=== PATIENT | female | born 1965 | race Caucasian/White ===

== ENCOUNTER → 2016-09-12 | Outpatient (REF) | payer OTHER ==
[~2016-09-12] MED LIST: /ATOR40TA OR; ASMA1AER3 IN; ASPI32ECTA PO; ASPI81TA45 OR; BAYE325T12 PO; FLUT22IN INH; IMDUR; LOPR50TA OR; METO25TA2 OR; PANT40TA2 PO; SALMDISK INH; SING10TA32 PO; ZYRT10TA2 PO
[2016-09-12 15:58] LABS: ALBUMIN 3.8 GM/DL (3.2-5.2); ALBUMIN/GLOBULIN RATIO 1.06 (1.00-1.93); ALKALINE PHOSPHATASE 112 U/L (45-117); ALT/SGPT 31 U/L (12-78); ANION GAP 8 MEQ/L (8-16); AST/SGOT 15 U/L (15-37); BILIRUBIN,TOTAL 0.3 MG/DL (0.2-1.0); BLOOD UREA NITROGEN 12 MG/DL (7-18); CALCIUM LEVEL 9.4 MG/DL (8.5-10.1); CARBON DIOXIDE LEVEL 30 MEQ/L (21-32); CHLORIDE LEVEL 106 MEQ/L (98-107); CHOLESTEROL LEVEL 158 MG/DL (<200); CREATININE FOR GFR 0.82 MG/DL (0.55-1.02); GLOMERULAR FILTRATION RATE > 60.0 (>51); GLUCOSE, FASTING 117 MG/DL (70-105); POTASSIUM SERUM 4.2 MEQ/L (3.5-5.1); SODIUM LEVEL 144 MEQ/L (136-145); TOTAL PROTEIN 7.4 GM/DL (6.4-8.2); TRIGLYCERIDES LEVEL 176 MG/DL (<150)
== END ==
LOC: M SFHCPLAZ 13:38
PROVIDERS: ATTEND Nurse Practitioner Family
DX: E78.5 Hyperlipidemia, unspecified (principal); E55.9 Vitamin D deficiency, unspecified

== ENCOUNTER → 2016-11-03 | Outpatient (CLI) | payer OTHER ==
--- NOTE | 2016-11-05 08:40 | REP ---
MR CERVICAL SPINE WITHOUT CONTRAST: HISTORY: Neck pain. Facet hypertrophy is present on the left at the C3-4 level. This produces minimal narrowing of the left C3 neural foramen. The right C3 neural foramen is patent. A disc bulge is present at the C5-6 level. There is mild effacement of the thecal sac without spinal cord compression. Uncinate process hypertrophy is present on the left. This produces mild narrowing of the left C5 neural foramen. The right C5 neural foramen is patent. A disc bulge is present at the C6-7 level. There is minimal effacement of the thecal sac without spinal cord compression. The C6 neural foramina are patent. There is no other disc bulge or herniation. The remaining neural foramina are patent. The spinal cord is normal in signal intensity. Normal signal intensity is present in the cervical vertebral bodies. IMPRESSION: There is cervical spondylosis at the C3-4, C5-6, and C6-7 levels without spinal cord compression. Signed by Drake Bianchi MD 11/05/2016 09:00 A
--- NOTE | 2016-11-05 09:13 | REP ---
MR LUMBAR SPINE WITHOUT CONTRAST: HISTORY: Back pain. There is no disc bulge or herniation at the L1-2 through L5-S1 levels. The nerves exit the neural foramina without compression. The conus medullaris is normal in appearance terminating at the level of the L1-2 intervertebral disc. Normal signal intensity is present in the lumbar intervertebral discs and vertebral bodies. IMPRESSION: There is no disc bulge or herniation. Signed by Drake Bianchi MD 11/05/2016 09:28 A
== END ==
LOC: M RAD 07:28
PROVIDERS: ATTEND Physician Assistant
DX: M47.892 Other spondylosis, cervical region (principal); M50.30 Other cervical disc degeneration, unspecified cervical region; M51.36 Other intervertebral disc degeneration, lumbar region

== ENCOUNTER → 2016-11-16 | Outpatient (RCR) | payer OTHER | LOC: M PT 10-22 12:16 | PROVIDERS: ATTEND Physician Assistant | DX: Z51.89 Encounter for other specified aftercare (principal); M51.36 Other intervertebral disc degeneration, lumbar region; M50.30 Other cervical disc degeneration, unspecified cervical region | CPT/HCPCS: 97010; 97035; 97110; 97140; 97162; G0283 ==

== ENCOUNTER → 2017-01-23 | Outpatient (REF) | payer OTHER | LOC: M SFHCPLAZ 16:31 | PROVIDERS: ATTEND Nurse Practitioner Family | DX: E78.5 Hyperlipidemia, unspecified (principal); E55.9 Vitamin D deficiency, unspecified ==

== ENCOUNTER → 2017-02-27 | Outpatient (REF) | payer OTHER ==
[~2017-02-27] MED LIST changes: +ASPI325T24 PO; -ASPI32ECTA PO
[2017-02-27 19:34] LABS: ALBUMIN 3.6 GM/DL (3.2-5.2); ALBUMIN/GLOBULIN RATIO 1.06 (1.00-1.93); ALKALINE PHOSPHATASE 104 U/L (45-117); ALT/SGPT 29 U/L (12-78); ANION GAP 6 MEQ/L (8-16); AST/SGOT 16 U/L (15-37); BILIRUBIN,TOTAL 0.5 MG/DL (0.2-1.0); BLOOD UREA NITROGEN 5 MG/DL (7-18); CALCIUM LEVEL 9.3 MG/DL (8.5-10.1); CARBON DIOXIDE LEVEL 30 MEQ/L (21-32); CHLORIDE LEVEL 106 MEQ/L (98-107); GLOMERULAR FILTRATION RATE > 60.0 (>51); GLUCOSE, FASTING 87 MG/DL (70-105); POTASSIUM SERUM 3.6 MEQ/L (3.5-5.1); SODIUM LEVEL 142 MEQ/L (136-145)
== END ==
LOC: M SFHCPLAZ 14:32
PROVIDERS: ATTEND Nurse Practitioner Family
DX: E78.5 Hyperlipidemia, unspecified (principal)

== ENCOUNTER → 2017-04-24 | Outpatient (CLI) | payer OTHER ==
--- NOTE | 2017-04-24 12:29 | REP ---
Clinical: Right hip pain. Technique: Neutral and frog lateral views. Findings: No acute fracture dislocation. Joint space is essentially normal for age. No significant osteophyte formation, joint space narrowing, or periarticular calcifications are identified. Impression: Relatively age-appropriate right hip radiographs. Signed by Genaro Metzger MD 04/24/2017 12:21 P
== END ==
LOC: M RAD 11:48
PROVIDERS: ATTEND Nurse Practitioner Family
DX: M25.551 Pain in right hip (principal)

== ENCOUNTER → 2017-07-02 | Outpatient (CLI) | payer OTHER ==
--- NOTE | 2017-07-02 14:08 | REP ---
RIGHT LOWER EXTREMITY DUPLEX DOPPLER ARTERIAL ULTRASOUND: Real-time ultrasound evaluation and duplex Doppler interrogation of right lower extremity arterial system performed. EZV is 0.54. There is mild scattered partially calcified plaquing and narrowing seen from distal abdominal aorta throughout the right lower extremity arterial system. There are somewhat diminished peak systolic velocities from right common femoral artery extending down through superficial femoral artery, popliteal artery and into the calf arteries of monophasic wave forms, suggesting possible more proximal iliac artery stenosis. RIGHT: PEAK SYSTOLIC VELOCITY PHASICITY Common femoral artery 24.5 cm/s Monophasic Profunda 48.7 Monophasic Superficial femoral artery 40.6 Monophasic Popliteal 21.1 Monophasic Anterior tibial artery 12.7 Monophasic Tibial peroneal trunk 19.7 Monophasic Posterior tibial artery 12.7 Monophasic Signed by Tom Pacheco MD 07/03/2017 11:28 A
== END ==
LOC: M RAD 11:48
PROVIDERS: ATTEND Surgery Vascular Surgery
DX: I70.211 Atherosclerosis of native arteries of extremities with intermittent claudication, right leg (principal)

== ENCOUNTER → 2017-07-17 | Outpatient (CLI) | payer OTHER, MEDICAID ==
[2017-07-17 12:05] LABS: MEAN CORPUSCULAR HEMOGLOBIN 32.6 pg (27.0-33.0); MEAN CORPUSCULAR HGB CONC 33.1 g/dl (32.0-36.5); MEAN CORPUSCULAR VOLUME 98.6 fl (80.0-96.0); PLATELET COUNT, AUTOMATED 196 10^3/uL (150-450); RED CELL DISTRIBUTION WIDTH 13.3 % (11.5-14.5); WHITE BLOOD COUNT 3.7 10^3/uL (4.0-10.0)
[2017-07-17 12:56] LABS: ANION GAP 7 MEQ/L (8-16); BLOOD UREA NITROGEN 9 MG/DL (7-18); CALCIUM LEVEL 9.2 MG/DL (8.5-10.1); CARBON DIOXIDE LEVEL 30 MEQ/L (21-32); CHLORIDE LEVEL 105 MEQ/L (98-107); CREATININE FOR GFR 0.81 MG/DL (0.55-1.02); GLOMERULAR FILTRATION RATE > 60.0 (>51); GLUCOSE, FASTING 76 MG/DL (70-105); POTASSIUM SERUM 4.4 MEQ/L (3.5-5.1); SODIUM LEVEL 142 MEQ/L (136-145)
== END ==
LOC: M LAB 11:19
PROVIDERS: ATTEND Surgery Vascular Surgery
DX: I70.211 Atherosclerosis of native arteries of extremities with intermittent claudication, right leg (principal)

== ENCOUNTER → 2017-08-01 | Outpatient (CLI) | payer OTHER ==
[~2017-08-01] MED LIST changes: +HEPARIN 1,000 UNITS/ML 10ML VIAL (FOR RADIOLOGY& DIALYSIS ONLY) As Ordered ONE; +ISOVUE-300 61% 50ML VIAL (Q9967) As Ordered ONE; +MIDAZOLAM INJ 2 MG/2 ML VIAL (J2250) As Ordered ONE; +PROTAMINE SULF INJ 50 MG/5 ML VIAL (J2720) As Ordered ONE; +fentaNYL 100 MCG/2 ML INJECTION (J3010) As Ordered ONE
--- NOTE | 2017-08-01 07:55 | REP ---
Bilateral carotid artery duplex ultrasound: Peak flow velocity analysis: RIGHT LEFT ICA Peak flow velocity cm/sec 94 120 ICA Diastolic flow velocity cm/sec 37 37 ICA/CCA Ratio 1.0 1.5 ECA Peak flow velocity cm/sec 117 89 CCA Peak flow velocity cm/sec 96 82 There is shallow to moderate atheromatous plaque in the distal common carotid artery extending into the bulbs and proximal internal carotid arteries and external carotid arteries bilaterally. Peak flow velocities are normal bilaterally. The findings indicate less than 50% stenosis bilaterally. There is no significant stenosis on the right on the left. There is antegrade flow in the vertebral arteries bilaterally. Signed by Tom Melgar MD 08/01/2017 07:47 A
--- NOTE | 2017-08-08 05:58 | REPIR ---
DATE OF PROCEDURE: 08/01/2017 PREPROCEDURE DIAGNOSES: Right lower extremity claudication with an ZEV of 0.54, left lower extremity claudication. POSTPROCEDURE DIAGNOSES: Right lower extremity claudication with an ZEV of 0.54, left lower extremity claudication plus aortoiliac atherosclerotic arterial occlusive disease. PROCEDURE: Aortogram, iliofemoral angiogram, bilateral lower extremity angiography, Mynx closure of the left common femoral arteriotomy. SURGEON: Dr. Sherman Mack. SUPERVISOR SHAVING AND SPLITTING: Jim Curran and Mari Kamara. ANESTHESIA: Local with 10 mL of 2% lidocaine. ESTIMATED BLOOD LOSS: SEDATION TIME: From 8:48 a.m. to 9:11 a.m. for a total of 23 minutes with the sedation administered and cardiopulmonary monitoring performed by the nurse in the room under my direct supervision. I was present for and directed the entire case. INDICATION: Patient is a 52-year-old female with bilateral lower extremity claudication, right greater than left, and an ZEV on the right of 0.54. Patient will undergo an angiogram with possible angioplasty and/or stent. Risks, benefits and alternative treatment options were discussed with the patient. PROCEDURE: The patient was taken to the angiography suite and placed supine on the angiography room table and then prepped and draped in a standard surgical fashion. The left common femoral artery was cannulated with a micropuncture needle after anesthetizing the overlying skin with 2% lidocaine. The micropuncture wire was advanced through the micropuncture needle which was upsized to a micropuncture sheath. A Bentson wire was advanced through the micropuncture sheath which was upsized to a #5-Tajik sheath. An Omniflush catheter was placed in the aorta and an aortogram was performed. Catheter was then pulled down to the level of the bifurcation of the iliac arteries and an iliofemoral angiogram was performed. Catheter remained at the bifurcation of the iliac arteries and bilateral lower extremity angiogram was performed. Catheters and wires were removed and a Mynx closure device was used to close the arteriotomy in the left common femoral artery with an additional 10 minutes of adjunctive pressure applied for hemostasis. Dressings were then applied. Patient tolerated the procedure well. All instrument, sponge and needle counts were correct at the end of the case. There were no complications. Dr. Mack was present for and directed the entire case. Patient was transferred to the holding area and subsequently discharged in stable condition. RADIOLOGIC SUPERVISION INTERPRETATION: The aortogram showed severe aortoiliac occlusive disease with reconstitution of the common femoral arteries bilaterally. A Mynx closure device was used to close the arteriotomy in the left common femoral artery.
== END | disposition home or self-care (01) ==
LOC: M IRPRO 06:40
PROVIDERS: ATTEND Surgery Vascular Surgery
DX: I70.0 Atherosclerosis of aorta (principal); I70.218 Atherosclerosis of native arteries of extremities with intermittent claudication, other extremity
CPT/HCPCS: 36200; 75630; 93880; 99152; 99153; C1760; C1769; C1887; C1894; G0269; J2250; J3010; Q9967

== ENCOUNTER → 2017-10-23 | Outpatient (CLI) | payer OTHER | LOC: M WHC 12:02 | DX: Z12.31 Encounter for screening mammogram for malignant neoplasm of breast (principal) | CPT/HCPCS: 77067 ==

== ENCOUNTER 2018-01-04 14:57 | Emergency (ER) | payer OTHER | END 2018-01-04 16:12 | disposition home or self-care (01) | LOC: M ED 14:57 | DX: S60.222A Contusion of left hand, initial encounter (principal); S60.512A Abrasion of left hand, initial encounter; W19.XXXA Unspecified fall, initial encounter; Y92.410 Unspecified street and highway as the place of occurrence of the external cause; Y93.9 Activity, unspecified; Y99.9 Unspecified external cause status; I51.9 Heart disease, unspecified; I10 Essential (primary) hypertension; J45.909 Unspecified asthma, uncomplicated; J44.9 Chronic obstructive pulmonary disease, unspecified; Z79.82 Long term (current) use of aspirin; Z79.899 Other long term (current) drug therapy; Z88.5 Allergy status to narcotic agent | CPT/HCPCS: 73130 ==

== ENCOUNTER → 2018-02-12 | Outpatient (REF) | LOC: M SMT 12:20 | DX: Z02.71 Encounter for disability determination (principal) ==

== ENCOUNTER → 2018-02-26 | Outpatient (REF) | payer OTHER | LOC: M SFHCPLAZ 14:13 | DX: I25.10 Atherosclerotic heart disease of native coronary artery without angina pectoris (principal); E55.9 Vitamin D deficiency, unspecified ==

== ENCOUNTER 2018-05-21 15:08 | Emergency (ER) | payer OTHER, MEDICAID ==
[2018-05-21] MEDS: NS 1,000 ML IV (16:57)
[2018-05-21] MEDS: METOCLOPRAMIDE INJ 10MG/2ML VIAL (J2765) IV (16:57)
[2018-05-21] MEDS: KETOROLAC 30 MG/ML VIAL (J1885) IV (16:58)
[2018-05-21] MEDS: diphenhydrAMINE INJ 50MG/ML VIAL (J1200) IV (16:58)
[2018-05-21] MEDS: CYCLOBENZAPRINE 10 MG TAB PO (17:40)
== END 2018-05-21 17:45 | disposition home or self-care (01) ==
LOC: M ED 15:08
DX: G44.209 Tension-type headache, unspecified, not intractable (principal); M62.838 Other muscle spasm; K21.9 Gastro-esophageal reflux disease without esophagitis; Z95.1 Presence of aortocoronary bypass graft; Z95.5 Presence of coronary angioplasty implant and graft; Z79.899 Other long term (current) drug therapy; Z79.82 Long term (current) use of aspirin; Z88.5 Allergy status to narcotic agent; F17.210 Nicotine dependence, cigarettes, uncomplicated
CPT/HCPCS: J1200

== ENCOUNTER → 2018-06-02 | Outpatient (REF) | payer OTHER ==
[2018-06-02 17:37] LABS: ALBUMIN 3.8 GM/DL (3.2-5.2); ALBUMIN/GLOBULIN RATIO 1.09 (1.00-1.93); ALKALINE PHOSPHATASE 111 U/L (45-117); ALT/SGPT 21 U/L (12-78); ANION GAP 5 MEQ/L (8-16); AST/SGOT 13 U/L (7-37); BILIRUBIN,TOTAL 0.3 MG/DL (0.2-1.0); BLOOD UREA NITROGEN 7 MG/DL (7-18); CARBON DIOXIDE LEVEL 32 MEQ/L (21-32); CHLORIDE LEVEL 105 MEQ/L (98-107); CHOLESTEROL LEVEL 143 MG/DL (<200); CHOLESTEROL RISK RATIO 3.666 (<5); CREATININE FOR GFR 0.92 MG/DL (0.55-1.30); GLOMERULAR FILTRATION RATE > 60.0 (>51); GLUCOSE, FASTING 87 MG/DL (70-100); HDL CHOLESTEROL 39 MG/DL (>40); LDL CHOLESTEROL 83 MG/DL (<100); NON-HDL-C 104 MG/DL; POTASSIUM SERUM 4.3 MEQ/L (3.5-5.1); SODIUM LEVEL 142 MEQ/L (136-145); TOTAL PROTEIN 7.3 GM/DL (6.4-8.2); TRIGLYCERIDES LEVEL 107 MG/DL (<150)
== END ==
LOC: M SFHCPLAZ 15:07
DX: E78.5 Hyperlipidemia, unspecified (principal); I25.10 Atherosclerotic heart disease of native coronary artery without angina pectoris; E55.9 Vitamin D deficiency, unspecified

== ENCOUNTER 2018-06-19 09:19 | Inpatient (IN) | payer OTHER ==
[~2018-06-19] VITALS: Ht 162.6 cm; Wt 64.5 kg
[2018-06-19] VITALS (8 sets, daily range): BP systolic 69–134; BP diastolic 50–70
[~2018-06-19 09:19] MED LIST changes: +ASMA16.7 INH; +ASPI1TAB PO; -ASPI325T24 PO; +ASPI325T25 PO; +CETI10TA PO; +COMBAER6 INH; +CYCL10TA PO; +ESCI20TA; +FLON1SPR; -HEPARIN 1,000 UNITS/ML 10ML VIAL (FOR RADIOLOGY& DIALYSIS ONLY) As Ordered ONE; +ISOS30TA4 PO; -ISOVUE-300 61% 50ML VIAL (Q9967) As Ordered ONE; +LIPI20TA PO; -MIDAZOLAM INJ 2 MG/2 ML VIAL (J2250) As Ordered ONE; +NICO21DI6 TD; -PANT40TA2 PO; +PANT40TA3 PO; -PROTAMINE SULF INJ 50 MG/5 ML VIAL (J2720) As Ordered ONE; +STRI1AER2 INH; +TRAZ1TAB14 PO; +WELL200T PO; +ZYRT10CA5 PO; -ZYRT10TA2 PO; -fentaNYL 100 MCG/2 ML INJECTION (J3010) As Ordered ONE
[2018-06-19 10:12] LABS: HEMATOCRIT 37.5 % (36.0-47.0); HEMOGLOBIN 12.6 g/dl (12.0-15.5); MEAN CORPUSCULAR HEMOGLOBIN 33.2 pg (27.0-33.0); MEAN CORPUSCULAR HGB CONC 33.6 g/dl (32.0-36.5); MEAN CORPUSCULAR VOLUME 98.7 fl (80.0-96.0); PLATELET COUNT, AUTOMATED 154 10^3/uL (150-450); WHITE BLOOD COUNT 3.7 10^3/uL (4.0-10.0)
[2018-06-19] MEDS ORDERED: HEPARIN SOD (PORCINE) 5000 UNITS/ML VIAL As Ordered ONE ×5 (12:53→18:22)
[2018-06-19] MEDS ORDERED: LIDOCAINE 1% SDV INJ 30 ML VIAL As Ordered ONE (12:53)
[2018-06-19] MEDS ORDERED: THROMBIN SOLN 20,000 UNITS KIT As Ordered ONE (12:53)
[2018-06-19] MEDS ORDERED: BUPIVACAINE HCL 0.5% 30 ML VIAL As Ordered ONE (12:54)
--- NOTE | 2018-06-19 14:10 | HPEPDOC ---
General Date of Admission Jun 19, 2018 at 09:19 Primary Care Physician: JOHN WASHINGTON Attending Physician: Sherman Mack MD Chief Complaint The patient is a 53-year-old female admitted with a reason for visit of Aorto- Iliac Occlusive Disease, total occlusion of the external iliac and common femor al artery on the right, total occlusion of the superficial femoral artery and profunda femoris artery proximally on the right and right lower extremity claudication. Source: Patient, Old records Exam Limitations: No limitations History of Present Illness Patient is a 53-year-old female who underwent angiography due to claudication in her lower extremities which showed complete occlusion of her right external iliac artery and common femoral artery as well as the proximal superficial femoral and profunda femoris arteries. Patient also has severe aortoiliac atherosclerotic arterial occlusive disease with severe stenosis of the left common iliac and right common iliac arteries. Patient was unable to undergo endovascular repair of her severe atherosclerotic arterial occlusive disease and the recommendation was to undergo a right femoral endarterectomy with patch angioplasty with possible concomitant recanalization of the right external iliac artery with bilateral common and external iliac artery angioplasty and stenting possibly. Patient may also require a left right femoral femoral bypass grafting as well as possible femoral to superficial femoral and popliteal artery bypass grafting. Home Medications Scheduled (Striverdi Respimat) 2.5 Mcg/Act Aer, 2.5 MCG INH PRN, (Reported) Albuterol/Ipratropium (Combivent Respimat 20-100 Mcg/Act) 1 Aer Aer, 1 PUFF INH BID, (Reported) Aspirin (Aspirin 81) 81 Mg Tab, 81 MG PO DAILY, (Reported) Atorvastatin Calcium (Lipitor) 20 Mg Tab, 80 MG PO DAILY, (Reported) Bupropion HCl (Wellbutrin Sr) 200 Mg Tab, PO BID, (Reported) Cetirizine HCl (Cetirizine HCl) 10 Mg Tab, PO DAILY, (Reported) Isosorbide Mononitrate (Isosorbide Mononitrate ER) 30 Mg Tab, 30 MG PO DAILY, (Reported) Mometasone Furoate (Asmanex Hfa) 100 Mcg/Act Aer, Unknown Dose INH BID, (Reported) Montelukast Sodium (Singulair) 10 Mg Tab, 10 MG PO QHS, (Reported) Nicotine (Nicoderm Cq) 21 Mg/24 Hr Dis, 21 MG TD DAILY, (Reported) Pantoprazole Sodium (Pantoprazole Sodium) 40 Mg Tab, PO DAILY, (Reported) Trazodone HCl (Trazodone HCl) 150 Mg Tab, PO QHS, (Reported) Scheduled PRN Cyclobenzaprine HCl (Cyclobenzaprine HCl) 10 Mg Tab, 10 MG PO TID PRN for MUSCLE SPASMS Allergies Coded Allergies: Codeine (Verified Adverse Reaction, Mild, vomiting, 06/09/18) Past Medical History Medical History Coronary artery disease status post myocardial infarction and CABG in 2009, with PTCA and stent 3 in 2014. Hyperlipidemia. Depression. COPD Coccyx fracture after traumatic fall in August 2014 Vitamin D deficiency Severe aortoiliac and femoral-popliteal arterial atherosclerotic occlusive disease. Tobacco use Surgical History Coronary artery bypass grafting in 2009 Coronary angiography with stenting 2014 Total hysterectomy 2008 EGD which was normal Colonoscopy which showed diverticulosis and a tubular adenomatous polyp which was removed in October 2015 Social History * Smoker: current smoker, greater than 1 pack/day Alcohol: occationally Drugs: denies Recent Travel/Sick Contacts: Denies: Recent travel, Recent sick contacts Psychosocial History: Depression Review of Systems Constitutional: Reports: Other; Denies: Chills, Fever, Malaise, Night Sweats, Weakness, Fatigue, Weight Loss, Lethargy Eyes: Denies: Pain, Vision change, Conjunctivae inflammation, Eyelid inflammation, Redness ENT: Denies: Head Aches, Ear Pain, Dysphagia, Sinus Congestion, Post Nasal Drip, Sore Throat, Epistaxis Skin: Denies: Rash, Lesions, Jaundice, Bruising, Itching, Dry, Breakdown, Nail Changes Pulmonary: Denies: Dyspnea, Cough, Pleuritic Chest Pain Cardiovascular: Denies: Chest Pain, Palpitations, Orthopnea, Paroxysmal Noc. D yspnea, Edema, Lt Headedness Gastrointestinal: Denies: Nausea, Vomiting, Abdominal Pain, Diarrhea, Constipation, Melena, Hematochezia Genitourinary: Reports: Other Symptoms; Denies: Dysuria, Frequency, Incontinence, Hematuria, Retention Hematologic: Denies: Bruising, Bleeding Excessively, Petecchia, Purpura, Enlarged Lymph Nodes Endocrine: Denies: Polydipsia, Polyphagia, Polyuria, Heat Intolerance, Cold Int olerance Musculoskeletal: Denies: Neck Pain, Back Pain, Shoulder Pain, Arm Pain, Hand Pain, Leg Pain, Foot Pain, Joint Pain, Muscle Pain, Spasms Neurological: Denies: Weakness, Numbness, Incoordination, Change in speech, Confusion, Seizures Psych: Denies: Mood Normal, Anxiety, Depression, Memory Issues, Thoughts of Self Harm, Anger, Thoughts of Harming Other Physical Examination General Exam: Positive: Alert, Cooperative, No Acute Distress Eye Exam: Positive: Conjunctiva & lids normal, EOMI ENT Exam: Positive: Atraumatic, Mucous membr. moist/pink, Pharynx Normal, Tongue Midline, Nares Patent, Ext Auditory Canal Nml, Pinna Normal Neck Exam: Positive: Supple, +2 carotid pulse wo bruit Chest Exam: Positive: Clear to auscultation, Normal air movement Heart Exam: Positive: Rate Normal Telemetry: Positive: No significant arrhythmia, Sinus Abdomen Exam: Positive: Normal bowel sounds, Soft Extremity Exam: Positive: Normal pulses (nonpalpable dorsalis peas and posterior tibial pulses bilaterally which were obtainable with continuous wave Doppler ultrasound with monophasic flow in the right biphasic flow on the left. ); Negative: Clubbing, Cyanosis, Edema, Tenderness, Swelling Skin Exam: Positive: Nl turgor and temperature Neuro Exam: Positive: Normal Speech, Normal Tone, Sensation Intact, Cranial Nerves 3-12 NL, Reflexes 2+ Psych Exam: Positive: Mental status NL, Mood NL, Memory Intact, Oriented x 3 Vital Signs Vital Signs Date Time Temp Pulse Resp B/P (MAP) Pulse Ox O2 Delivery O2 Flow Rate FiO2 06/19/18 09:55 97.8 80 18 108/60 (76) 93 Laboratory Data Labs 24H Laboratory Tests 2 06/19/18 09:47: Nucleated Red Blood Cells % (auto) 0.0 CBC/BMP Laboratory Tests 06/19/18 09:47 Red Blood Count 3.80 L, Mean Corpuscular Volume 98.7 H, Mean Corpuscular Hemoglobin 33.2 H, Mean Corpuscular Hemoglobin Concent 33.6, Red Cell Distribution Width 13.7 Assessment/Plan Assessment Patient is a 53-year-old female with right greater than left lower extremity claudication who underwent angiography which showed severe aortoiliac atherosclerotic occlusive disease with stenosis in her right and left common iliac arteries. Patient also had complete occlusion of her right external iliac artery and right common femoral artery and proximal right superficial femoral and profunda femoris arteries with reconstitution of the superficial femoral and profunda femoris arteries distally via collaterals. Plan Patient will undergo a right femoral endarterectomy with patch angioplasty with attempted recanalization of her right external iliac artery with possible antip lastic and stenting. Patient will also undergo possible left common and external iliac artery angioplasty and stenting. Sherman Mack MD Jun 19, 2018 14:10
[2018-06-19] MEDS ORDERED: PROPOFOL 200 MG/20 ML VIAL As Ordered ONE ×2 (14:13→14:14)
[2018-06-19] MEDS ORDERED: fentaNYL 100 MCG/2 ML INJECTION (J3010) As Ordered ONE (14:27)
[2018-06-19] MEDS ORDERED: ROCURONIUM BROMIDE 50 MG/5 ML VIAL As Ordered ONE (14:27)
[2018-06-19] MEDS ORDERED: fentaNYL 250 MCG/5 ML INJECTION (J3010) As Ordered ONE (14:27)
[2018-06-19] MEDS ORDERED: MIDAZOLAM INJ 2 MG/2 ML VIAL (J2250) As Ordered ONE ×3 (14:27→20:11)
[2018-06-19] MEDS ORDERED: ONDANSETRON 4MG/2ML VIAL (J2405) As Ordered ONE (14:27)
[2018-06-19] MEDS ORDERED: dexameTHASONE 4 MG/ML 1ML VIAL (J1100) As Ordered ONE (14:27)
[2018-06-19] MEDS ORDERED: CONRAY-60 60% 50ML VIAL (Q9961) As Ordered ONE (14:32)
[2018-06-19] MEDS ORDERED: ePHEDrine SULFATE 25 MG/5 ML(5MG/ML) SYRINGE As Ordered ONE (15:10)
[2018-06-19] MEDS ORDERED: PHENYLephrine HCL 500 MCG/5 ML (100MCG/ML) SYRINGE (J2370) As Ordered ONE (15:16)
[2018-06-19] MEDS ORDERED: PHENYLEPHRINE INJ 10MG/ML VIAL (J2370) As Ordered ONE ×2 (15:43→20:22)
[2018-06-19] MEDS ORDERED: VASOPRESSIN INJ 20 UNITS/ML VIAL As Ordered ONE (16:02)
[2018-06-19 16:36] LABS: HEMATOCRIT 21.9 % (36.0-47.0); HEMOGLOBIN 7.1 g/dl (12.0-15.5)
[2018-06-19] MEDS ORDERED: CALCIUM CHLORIDE 10% 1 GM/10 ML SYR As Ordered ONE (17:04)
[2018-06-19] MEDS ORDERED: ESMOLOL INJ 100MG/10ML VIAL As Ordered ONE (17:57)
[2018-06-19] MEDS ORDERED: PROTAMINE SULF INJ 50 MG/5 ML VIAL (J2720) As Ordered ONE (18:50)
[2018-06-19] MEDS ORDERED: MORPHINE 4 MG/ML 1ML VIAL/SYRINGE (J2270) IV PRN (20:00)
[2018-06-19] MEDS ORDERED: CYCLOBENZAPRINE 10 MG TAB PO PRN (20:00)
[2018-06-19] MEDS ORDERED: fentaNYL 100 MCG/2 ML INJECTION (J3010) IV PRN (20:45)
[2018-06-19] MEDS ORDERED: METOCLOPRAMIDE INJ 10MG/2ML VIAL (J2765) IV PRN (20:45)
[2018-06-19] MEDS ORDERED: ONDANSETRON 4MG/2ML VIAL (J2405) IV PRN (20:45)
[2018-06-19] MEDS ORDERED: MIDAZOLAM INJ 2 MG/2 ML VIAL (J2250) IV SCH (20:45)
[2018-06-19] MEDS ORDERED: LR 1,000 ML IV SCH (20:45)
[2018-06-19] MEDS ORDERED: PERCOCET 5MG/325MG TAB PO PRN (20:45)
[2018-06-19 20:50] LABS: BASO % 0.2 % (0.0-1.0); EOS # 0.1 10^3/uL (0.0-0.50); EOS % 0.4 % (0.0-3.0); HEMATOCRIT 34.6 % (36.0-47.0); LYMPH # 1.7 10^3/uL (1.5-4.5); LYMPH % 12.9 % (24.0-44.0); MEAN CORPUSCULAR HEMOGLOBIN 30.5 pg (27.0-33.0); MEAN CORPUSCULAR HGB CONC 33.8 g/dl (32.0-36.5); MEAN CORPUSCULAR VOLUME 90.3 fl (80.0-96.0); MONO # 0.5 10^3/uL (0.0-0.8); MONO % 3.9 % (0.0-5.0); NEUTROPHILS # 11.1 10^3/uL (1.8-7.7); NEUTROPHILS % 81.8 % (36.0-66.0); PLATELET COUNT, AUTOMATED 100 10^3/uL (150-450); RED BLOOD COUNT 3.83 10^6/uL (4.00-5.40); WHITE BLOOD COUNT 13.5 10^3/uL (4.0-10.0)
[2018-06-19 20:56] LABS: HEMOGLOBIN 11.7 g/dl (12.0-15.5)
[2018-06-19] MEDS: buPROPion (WELLBUTRIN SR) 100 MG SR TAB PO SCH (21:00)
[2018-06-19] MEDS: MONTELUKAST 10 MG TAB PO SCH (21:00)
[2018-06-19] MEDS: traZODone 50 MG TAB PO SCH (21:00)
[2018-06-19] MEDS ORDERED: PHENYLEPHRINE INJ 10MG/ML VIAL (J2370) IV SCH (21:15)
[2018-06-19 21:40] LABS: ABG HCO3 20.2 MEQ/L (22.0-26.0); ABG O2 SATURATION 95.9 % (95.0-99.0); ABG PARTIAL PRESSURE CO2 46.7 mmHg (35.0-45.0); ABG PARTIAL PRESSURE O2 83.6 mmHg (75.0-100.0); ABG STANDARD HCO3 18.8 MEQ/L (22.0-26.0); ABG TOTAL CO2 21.6 MEQ/L (22.0-29.0); ABG pH (ARTERIAL) 7.253 UNITS (7.350-7.450)
[2018-06-19] MEDS: ONDANSETRON 4MG/2ML VIAL (J2405) IV PRN (22:28)
[2018-06-19] MEDS ORDERED: NALOXONE INJ 0.4 MG/1 ML VIAL (J2310) IV STA (22:38)
[2018-06-19] MEDS ORDERED: FLUMAZENIL 0.5 MG/5 ML VIAL IV PRN (22:45)
[2018-06-19] MEDS ORDERED: PHENYLEPHRINE HCL INJ 50 MG in D5W 495 ML IV SCH (23:00)
[2018-06-19 23:14] LABS: ABG BASE EXCESS -8.6 (-2.0-2.0); ABG HCO3 18.6 MEQ/L (22.0-26.0); ABG O2 SATURATION 98.3 % (95.0-99.0); ABG PARTIAL PRESSURE CO2 44.4 mmHg (35.0-45.0); ABG PARTIAL PRESSURE O2 127.9 mmHg (75.0-100.0); ABG STANDARD HCO3 17.7 MEQ/L (22.0-26.0); ABG TOTAL CO2 19.9 MEQ/L (22.0-29.0)
[2018-06-19 23:15] LABS: ABG pH (ARTERIAL) 7.239 UNITS (7.350-7.450)
[2018-06-19 23:28] LABS: MB/CK RELATIVE INDEX 5.26 (< OR =4); TROPONIN I 1.41 NG/ML (< 0.10)
[2018-06-19] MEDS ORDERED: SODIUM BICARBONATE 8.4% INJ 50 ML SYRINGE IV STA (23:34)
[2018-06-19] MEDS ORDERED: ACETAMINOPHEN 325 MG/10.15 ML UDC GT PRN (23:45)
[2018-06-20] VITALS (24 sets, daily range): BP systolic 75–171; BP diastolic 50–110
[2018-06-20 01:13] LABS: ABG BASE EXCESS -6.1 (-2.0-2.0); ABG HCO3 19.5 MEQ/L (22.0-26.0); ABG O2 SATURATION 97.8 % (95.0-99.0); ABG PARTIAL PRESSURE CO2 39.1 mmHg (35.0-45.0); ABG PARTIAL PRESSURE O2 100.6 mmHg (75.0-100.0); ABG STANDARD HCO3 19.5 MEQ/L (22.0-26.0); ABG TOTAL CO2 20.7 MEQ/L (22.0-29.0); ABG pH (ARTERIAL) 7.316 UNITS (7.350-7.450)
[2018-06-20] MEDS ORDERED: SODIUM BICARBONATE 8.4% INJ 50 ML SYRINGE IV STA (01:32)
--- NOTE | 2018-06-20 02:26 | REP ---
Clinical: Status post endarterectomy . Comparison: 12/08/2015 . Findings: The mediastinum and cardiac silhouette are stable and within normal limits for portable technique. Evidence for prior sternotomy and CABG. The lung eric are clear without acute consolidation, effusion, or pneumothorax. Skeletal structures are intact. Impression: No acute cardiopulmonary process appreciated. Electronically Signed by Genaro Metzger MD 06/20/2018 02:19 A
[2018-06-20 05:23] LABS: HEMOGLOBIN 13.2 g/dl (12.0-15.5); MEAN CORPUSCULAR HEMOGLOBIN 30.3 pg (27.0-33.0); MEAN CORPUSCULAR HGB CONC 35.7 g/dl (32.0-36.5); MEAN CORPUSCULAR VOLUME 85.1 fl (80.0-96.0); RED BLOOD COUNT 4.35 10^6/uL (4.00-5.40); WHITE BLOOD COUNT 12.5 10^3/uL (4.0-10.0)
[2018-06-20 05:46] LABS: CREATININE FOR GFR 1.03 MG/DL (0.55-1.30); GLOMERULAR FILTRATION RATE 59.4 (>51); POTASSIUM SERUM 4.2 MEQ/L (3.5-5.1)
[2018-06-20 05:49] LABS: PLATELET COUNT, AUTOMATED 85 10^3/uL (150-450)
[2018-06-20 05:58] LABS: ABG BASE EXCESS -2.2 (-2.0-2.0); ABG HCO3 22.6 MEQ/L (22.0-26.0); ABG O2 SATURATION 94.1 % (95.0-99.0); ABG PARTIAL PRESSURE CO2 38.9 mmHg (35.0-45.0); ABG PARTIAL PRESSURE O2 68.1 mmHg (75.0-100.0); ABG STANDARD HCO3 22.6 MEQ/L (22.0-26.0); ABG TOTAL CO2 23.8 MEQ/L (22.0-29.0); ABG pH (ARTERIAL) 7.382 UNITS (7.350-7.450)
[2018-06-20] MEDS: ONDANSETRON 4MG/2ML VIAL (J2405) IV PRN ×3 (06:02→19:48)
[2018-06-20 06:04] LABS: MB/CK RELATIVE INDEX 5.21 (< OR =4); TROPONIN I 0.53 NG/ML (< 0.10)
[2018-06-20] MEDS ORDERED: METOPROLOL 5 MG/5 ML VIAL IV STA ×2 (07:01→11:10)
[2018-06-20] MEDS ORDERED: METOCLOPRAMIDE INJ 10MG/2ML VIAL (J2765) IV PRN (07:15)
[2018-06-20] MEDS: IPRATROPIUM 0.5MG/ALBUTEROL 2.5MG INH SOL UD 3ML (DUONEB)(J7620) INH SCH ×2 (08:39→19:51)
[2018-06-20] MEDS: buPROPion (WELLBUTRIN SR) 100 MG SR TAB PO SCH ×2 (09:00→21:53)
[2018-06-20] MEDS: NICOTINE 21MG/24HR 1 EA TRANSDERMAL TD SCH (09:07)
--- NOTE | 2018-06-20 10:04 | IPNPDOC ---
Subjective Date Seen The patient was seen on 06/20/18. Subjective Chief Complaint/HPI Sleepy, Pain, +N/+V. Phenylephrine stopped this am d/t stabilized BPs as per RN. Objective Physical Examination General Exam: Positive: Cooperative (arousable, seems to understand but did not answer questions), Moderate Distress; Negative: Alert Eye Exam: Positive: PERRLA, EOMI ENT Exam: Positive: Atraumatic, Ext Auditory Canal Nml Neck Exam: Positive: Supple; Negative: JVD Chest Exam: Positive: Clear to auscultation, Normal air movement, Diminished (BS in lung bases b/l); Negative: Rales, Rhonchi, Wheezing Heart Exam: Positive: Tachycardic, Regular Rhythm, Normal S1, Normal S2; Negative: Gallops, Murmurs, Rubs Telemetry: Positive: No significant arrhythmia, Sinus Abdomen Exam: Positive: Normal bowel sounds, Soft, Tenderness (RLQ >LLQ, no rebound.) Extremity Exam: Positive: Normal pulses (PP: Rt DP and PT audible biphasic, Lt DP and PT audible biphasic), Swelling (Rt groin and upper thigh large bruise in surgical site, minimal drainage on dressing, no incisional hematoma); Negative: Clubbing, Cyanosis, Edema, Tenderness Skin Exam: Positive: Nl turgor and temperature Neuro Exam: Positive: Normal Speech, Normal Tone, Sensation Intact, Cranial Nerves 3-12 NL, Reflexes 2+ Psych Exam: Positive: Mental status NL (sleepy), Mood NL Assessment /Plan Assessment 1. POD #1, S/p biiliac stents + Rt fem endarterectomy for severe aortoiliac and Rt femoral atherosclerotic occlusive disease. Rt retroperitoneal hematoma stable. BPs stabilized, has been tachy HR 110-120s, phenylephrine stopped this am. 2. CAD with Hx MT s/p CABG x2 2010 Trop trending down 0.53 vs 1.41, CK-MB trending up 95 vs 29, CK-MB RI 5.21.vs 5.26 UOP adequate 2520 cc 3. COPD on RT 4. Acute blood loss anemia, s/p PRBCs x4, H&H 13.2/37 5. Thrombocytopenia plt 85 vs 100 Plan/VTE VTE Prophylaxis Ordered?: Yes Plan Continue current regimen Phenylephrine on hold this am for stabilized BPs, Continue to monitor BPs and HR, UOP Continue to monitor cardiac enzymes Continue Zofran for N/V RT for COPD Metoprolol 2.5 mg IV x1 Request cardiology consult for postop medical management of her CAD OOB up to chair Encourage ambulation as able VS, I&O, 24H, Vikram Vital Signs/I&O Vital Signs Date Time Temp Pulse Resp B/P (MAP) Pulse Ox O2 Delivery O2 Flow Rate FiO2 06/20/18 08:03 25 06/20/18 07:34 122 137/72 06/20/18 06:30 98 Room Air 06/20/18 04:00 99.0 06/20/18 00:00 3.0 I&O- Last 24 Hours up to 6 AM 06/20/18 05:59 Intake Total 7536 ml Output Total 2355 ml Balance 5181 ml Laboratory Data 24H LABS Laboratory Tests 2 06/19/18 09:47: Nucleated Red Blood Cells % (auto) 0.0 06/19/18 16:27: POC pH (Misc Panel) 7.283L, POC Base Excess (Misc Panel) -2.0, POC Saturated Percent O2 (Misc) 100H, POC pO2 (Misc Panel) 283.0H, POC pCO2 (Misc Panel) 53.0H, POC HCO3 (Misc Panel) 25.1, POC Glucose (Misc Panel) 267H, POC Sodium (Misc Panel) 141, POC Potassium (Misc Panel) 3.8, POC Total CO2 (Misc Panel) 27.0, POC Ionized Calcium (Misc Panel) 4.9, POC Hemoglobin (Misc) 5.8*L, POC Hematocrit (Misc Panel) 17.0L 06/19/18 20:30: Nucleated Red Blood Cells % (auto) 0.0, Immature Granulocyte % (Auto) 0.8, White Blood Count 13.5H, Red Blood Count 3.83L, Hemoglobin 11.7#L, Hematocrit 34.6L, Mean Corpuscular Volume 90.3, Mean Corpuscular Hemoglobin 30.5, Mean Corpuscular Hemoglobin Concent 33.8, Red Cell Distribution Width 15.9H, Platelet Count 100L, Neutrophils (%) (Auto) 81.8H, Lymphocytes (%) (Auto) 12.9L, Monocytes (%) (Auto) 3.9, Eosinophils (%) (Auto) 0.4, Basophils (%) (Auto) 0.2, Neutrophils # (Auto) 11.1H, Lymphocytes # (Auto) 1.7, Monocytes # (Auto) 0.5, Eosinophils # (Auto) 0.1, Basophils # (Auto) 0.0 06/19/18 21:30: Blood Gas Bicarbonate Standard 18.8L, Arterial Blood pH 7.253L, Arterial Blood Partial Pressure CO2 46.7H, Arterial Blood Partial Pressure O2 83.6, Arterial Blood Total CO2 21.6L, Arterial Blood HCO3 20.2L, Arterial Blood Base Excess - 7.0L, Arterial Blood Oxygen Saturation 95.9, Arterial Blood Gas Puncture Site UNKNOWN, Oxygen Delivery Device NASAL ANA 06/19/18 22:56: Total Creatine Kinase 544H, Creatine Kinase MB 29.0H, Creatine Kinase MB Relative Index 5.26H, Troponin I 1.41H 06/19/18 23:04: Blood Gas Bicarbonate Standard 17.7L, Arterial Blood pH 7.239*L, Arterial Blood Partial Pressure CO2 44.4, Arterial Blood Partial Pressure O2 127.9H, Arterial Blood Total CO2 19.9L, Arterial Blood HCO3 18.6L, Arterial Blood Base Excess - 8.6L, Arterial Blood Oxygen Saturation 98.3 06/20/18 01:05: Blood Gas Bicarbonate Standard 19.5L, Arterial Blood pH 7.316L, Arterial Blood Partial Pressure CO2 39.1, Arterial Blood Partial Pressure O2 100.6H, Arterial Blood Total CO2 20.7L, Arterial Blood HCO3 19.5L, Arterial Blood Base Excess - 6.1L, Arterial Blood Oxygen Saturation 97.8 06/20/18 05:06: Total Creatine Kinase 1818#H, Creatine Kinase MB 95.0H, Creatine Kinase MB Relative Index 5.21H, Troponin I 0.53#H, Nucleated Red Blood Cells % (auto) 0.0, Immature Platelet Fraction 5.1, Anion Gap 7L, Glomerular Filtration Rate 59.4, Blood Urea Nitrogen 14, Creatinine 1.03, Sodium Level 144, Potassium Level 4.2, Chloride Level 113H, Carbon Dioxide Level 24, Calcium Level 8.0L 06/20/18 05:48: Blood Gas Bicarbonate Standard 22.6, Arterial Blood pH 7.382, Arterial Blood Partial Pressure CO2 38.9, Arterial Blood Partial Pressure O2 68.1L, Arterial Blood Total CO2 23.8, Arterial Blood HCO3 22.6, Arterial Blood Base Excess - 2.2L, Arterial Blood Oxygen Saturation 94.1L CBC/BMP Laboratory Tests 06/19/18 09:47 Red Blood Count 3.80 L, Mean Corpuscular Volume 98.7 H, Mean Corpuscular Hemoglobin 33.2 H, Mean Corpuscular Hemoglobin Concent 33.6, Red Cell Distribution Width 13.7 06/19/18 16:10 06/19/18 20:30 Red Blood Count 3.83 L, Mean Corpuscular Volume 90.3, Mean Corpuscular Hemoglobin 30.5, Mean Corpuscular Hemoglobin Concent 33.8, Red Cell Distribution Width 15.9 H, Neutrophils (%) (Auto) 81.8 H, Lymphocytes (%) (Auto) 12.9 L, Monocytes (%) (Auto) 3.9, Eosinophils (%) (Auto) 0.4, Basophils (%) (Auto) 0.2, Neutrophils # (Auto) 11.1 H, Lymphocytes # (Auto) 1.7, Monocytes # (Auto) 0.5, Eosinophils # (Auto) 0.1, Basophils # (Auto) 0.0 06/20/18 05:06 Red Blood Count 4.35, Mean Corpuscular Volume 85.1, Mean Corpuscular Hemoglobin 30.3, Mean Corpuscular Hemoglobin Concent 35.7, Red Cell Distribution Width 16.1 H, Calcium Level 8.0 L LUCY REGALADO PA-C Jun 20, 2018 10:04
[2018-06-20] MEDS: ISOSORBIDE MON. (IMDUR) 30 MG XR TAB PO SCH (10:46)
[2018-06-20] MEDS: PANTOPRAZOLE 40MG TAB (PROTONIX) PO SCH (10:46)
[2018-06-20] MEDS: ASPIRIN 81 MG ENTERIC TAB PO SCH (10:46)
[2018-06-20] MEDS: CETIRIZINE (ZyrTEC) 10 MG TAB PO SCH (10:47)
[2018-06-20] MEDS: ATORVASTATIN 20 MG TAB PO SCH (10:47)
[2018-06-20] MEDS: METOPROLOL 5 MG/5 ML VIAL IV SCH ×5 (13:46→21:55)
[2018-06-20 13:57] LABS: MB/CK RELATIVE INDEX 3.88 (< OR =4); TROPONIN I 0.23 NG/ML (< 0.10)
[2018-06-20] MEDS: NORCO, ANEXSIA 5/325MG TABLET (HYDROcodone/ACETAMINOPHEN) PO PRN ×2 (15:01→22:04)
--- NOTE | 2018-06-20 18:44 | CR ---
DATE: 06/20/2018 REFERRING PHYSICIAN: Dr. Mack INDICATION: Elevated troponin after vascular surgery. HISTORY OF PRESENT ILLNESS: Mrs. Bacon is known to me. She is a 53-year-old lady who underwent bypass surgery in 2009 and then angioplasty in 2014. 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 The procedure was lasting for over 5 hours. She had considerable blood loss and there were episodes when she was hypotensive. Nevertheless, she was eventually taken to the intensive care unit (ICU), even though she required several units of packed red blood cells. Her troponin was elevated. The initial was 1.4 and has been coming down since. I was asked by Dr. Mack to see the patient. She is examined in the ICU and was somewhat obtunded. She would easily be arousable and answer simple questions but I am not quite sure that she is quite oriented even though most of the answers seem appropriate. She denies any chest pain, shortness of breath, nausea or vomiting, but unfortunately I was not able to obtain a really good history. PAST MEDICAL HISTORY: 1. Coronary artery disease. She underwent coronary artery bypass graft (CABG) in 2009 after presentation with non ST elevation myocardial infarction. Angiogram at that point revealed triple vessel and left main disease and ejection fraction about 35%. She received THOMPSON to LAD and SVG to obtuse marginal. She had another catheterization in August 2014 after she had prior stress test revealing lateral ischemia. It revealed occluded stent to obtuse marginal, patent THOMPSON to LAD and she received bare metal stent to obtuse marginal. The venous graft to obtuse marginal at that point was occluded. Her last evaluation for ischemia was exercise stress test in March 2016. She was able to walk only for six METs. There was no convincing evidence for ischemia. Her last evaluation of ejection fraction was a nuclear stress test in July 2014 that revealed left ventricular ejection fraction 48%. 2. Peripheral vascular disease, as above. 3. Chronic hepatitis B. 4. Dyslipidemia. 5. Arterial hypertension. 6. Asthma. OUTPATIENT MEDICATIONS: - aspirin 81 a day - Asmanex - atorvastatin 40 mg a day - bupropion 150 mg a day - cetirizine 10 mg a day - Combivent - citalopram 20 mg a day - gabapentin 100 mg twice a day - Imdur 30 mg a day - Nicoderm CQ - Singulair 10 mg a day - Respimat inhaler SURGICAL HISTORY: Positive for coronary artery bypass surgery and hysterectomy. ALLERGIES: CODEINE. SOCIAL HISTORY: The patient lives with her boyfriend. Unfortunately, she is an active smoker. There is no history of drug use, at least not recently. FAMILY HISTORY: Positive for coronary artery disease. REVIEW OF SYSTEMS: Unfortunately unable to obtain due to the patient's condition. PHYSICAL EXAMINATION: The patient is in ICU. She seems to be slightly restless. She is sleeping but easily arousable and answers questions mostly appropriately but it is not completely oriented. Vital signs: Blood pressure 111/67, heart rate has been in low 100s, but previously was substantially higher. She is afebrile. Saturation is 98% on room air. Her weight was documented at 74.5 kg. Her jugular venous pressure is not elevated. I do not appreciate carotid bruit. Lungs appear with good air movement. I do not appreciate any crackles, rhonchi or wheezes. Heart exam reveals somewhat muffled heart sounds. She has a regular tachycardia. There is a murmur best heard at the apex about 1-2/6 intensity. Abdomen is soft, I do not appreciate guarding. Bowel sounds are present. Extremities have good peripheral pulses bilaterally. No peripheral edema. There is a bandage in her right groin and leg. Neurologically, she is somnolent but arousable, alert and oriented times one. LABORATORY DATA: Her basic metabolic panel this morning showed sodium 145, potassium 4.2, BUN 14, creatinine 1.0, glucose 160, troponin I last night at 2256 hours was 1.4 and was 0.53 at 5:00 this morning and 0.23 at 1:00 this afternoon. CBC reveals WBC count 12.5 thousand, hemoglobin 13.2, hematocrit 37, platelet count 85,000. Prior to the surgery, her hemoglobin was 12.6 and it dropped as low as 7.1 yesterday afternoon but after blood transfusion came back to normal. CURRENT MEDICATIONS: - aspirin 81 mg a day - atorvastatin 80 mg a day - isosorbide mononitrate 30 mg a day - pantoprazole 40 mg a day - Nicoderm CQ 20 mg a day patch - metoclopramide 10 mg every 8 hours for nausea - Wellbutrin 200 mg twice a day - Singulair 10 mg at night - trazodone 150 mg at night - morphine - Flexeril Chest x-ray was normal other than revealing prior sternotomy. No ECG obtained yet. ASSESSMENT/PLAN: Mrs. Bacon is a 53-year-old female who has history of bypass surgery and coronary intervention, as outlined above. She has troponin elevation after complicated vascular surgery that involved significant blood loss and episodes of hypotension. I suspect that this is the principal trigger of her troponin elevation. The trend is already down. I already started her on beta-blockers. She was not put on beta-blockers on an outpatient basis because she has a history of asthma and was relatively bradycardic, but currently we need to control her tachycardia. I gave her metoprolol a 5 mg to be given every 2 hours with holding for bradycardia and hypotension, so far the medication is well tolerated and heart rate is better. Once her oral intake becomes reliable, we will switch her to oral preparation, provided she does not have a bronchospasm, which she has so far has not had. She is on aspirin. I am reluctant to give her additional anticoagulants because she had the significant bleeding and possibly retroperitoneal. But once appropriate from the perspective of surgery, I would recommend to add second antiplatelet agent, probably Plavix in a standard dose. She is on maximum dose of atorvastatin. Cardiology will continue monitoring the patient with you. 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
[2018-06-20] MEDS: traZODone 50 MG TAB PO SCH (21:53)
[2018-06-20] MEDS: MONTELUKAST 10 MG TAB PO SCH (21:53)
[2018-06-21] VITALS (11 sets, daily range): BP systolic 99–126; BP diastolic 55–75
[2018-06-21] MEDS: METOPROLOL 5 MG/5 ML VIAL IV SCH ×8 (02:33→13:58)
[2018-06-21 04:28] LABS: HEMATOCRIT 29.9 % (36.0-47.0); MEAN CORPUSCULAR HEMOGLOBIN 30.6 pg (27.0-33.0); MEAN CORPUSCULAR HGB CONC 34.4 g/dl (32.0-36.5); MEAN CORPUSCULAR VOLUME 88.7 fl (80.0-96.0); RED BLOOD COUNT 3.37 10^6/uL (4.00-5.40); WHITE BLOOD COUNT 7.2 10^3/uL (4.0-10.0)
[2018-06-21 04:45] LABS: PLATELET COUNT, AUTOMATED 78 10^3/uL (150-450)
[2018-06-21 04:46] LABS: HEMOGLOBIN 10.3 g/dl (12.0-15.5)
[2018-06-21 04:50] LABS: BLOOD UREA NITROGEN 17 MG/DL (7-18); CALCIUM LEVEL 8.3 MG/DL (8.5-10.1); CARBON DIOXIDE LEVEL 25 MEQ/L (21-32); CHLORIDE LEVEL 108 MEQ/L (98-107); CREATININE FOR GFR 0.77 MG/DL (0.55-1.30); GLOMERULAR FILTRATION RATE > 60.0 (>51); GLUCOSE, FASTING 109 MG/DL (70-100); POTASSIUM SERUM 4.2 MEQ/L (3.5-5.1); SODIUM LEVEL 140 MEQ/L (136-145)
[2018-06-21] MEDS: IPRATROPIUM 0.5MG/ALBUTEROL 2.5MG INH SOL UD 3ML (DUONEB)(J7620) INH SCH ×2 (07:41→19:45)
[2018-06-21] MEDS: CETIRIZINE (ZyrTEC) 10 MG TAB PO SCH (08:21)
[2018-06-21] MEDS: ATORVASTATIN 20 MG TAB PO SCH (08:21)
[2018-06-21] MEDS: PANTOPRAZOLE 40MG TAB (PROTONIX) PO SCH (08:21)
[2018-06-21] MEDS: ISOSORBIDE MON. (IMDUR) 30 MG XR TAB PO SCH (08:21)
[2018-06-21] MEDS: ASPIRIN 81 MG ENTERIC TAB PO SCH (08:21)
[2018-06-21] MEDS: NICOTINE 21MG/24HR 1 EA TRANSDERMAL TD SCH (08:21)
[2018-06-21] MEDS: NORCO, ANEXSIA 5/325MG TABLET (HYDROcodone/ACETAMINOPHEN) PO PRN (09:46)
[2018-06-21] MEDS: buPROPion (WELLBUTRIN SR) 100 MG SR TAB PO SCH ×2 (12:11→21:53)
--- NOTE | 2018-06-21 14:00 | ECGEPIP ---
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 Somewhat low voltage. Slightly prominent R waves in V3 and miniscule inferior Q waves; rule out prior inferoposterior injury. Diffuse nonspecific ST/T-wave abnormalities. No prior tracing for comparison. Clinical correlation advised. Electronically Signed On 06-21-2018 13:59:56 EDT by Sherman Eastman
--- NOTE | 2018-06-21 14:01 | ECGEPIP ---
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 Somewhat low voltages. Miniscule inferior Q waves. Nonspecific ST/T-wave abnormalities marginally less prominent with slower heart rate from 06/20/18 Electronically Signed On 06-21-2018 14:00:46 EDT by Sherman Eastman
[2018-06-21] MEDS ORDERED: NITROGLYCERIN 0.4 MG SUBL TABLET SL PRN (16:00)
[2018-06-21] MEDS: METOPROLOL TART 25 MG TABLET PO SCH ×2 (16:10→21:59)
--- NOTE | 2018-06-21 16:28 | IPN ---
DATE: 06/21/2018 CARDIOLOGY PROGRESS NOTE Covering for Dr. Gilliam. SUBJECTIVE: The patient at this point claims to be comfortable other than a numbness of her lower extremities. Specifically denies any chest discomfort or shortness of breath. No further gastrointestinal (GI) upset today but continues to be quite anorexic. OBJECTIVE: Slightly overweight, middle-aged woman. Appears to be quite lethargic with very low-volume voice in response to questioning. Will barely open her eyes. Heart rate 92 beats per minute (BPM), blood pressure 116/70, respiratory rate 18 per minute, oxygen saturation 96% on supplemental oxygen by nasal prongs at 1 liter. Currently afebrile. Weight today is unchanged from yesterday at 74.5 kg, up some 5 kg from her admission weight. Slight pallor. No conjunctival icterus. Normal oral moisture. No central cyanosis. Trachea midline. Neck veins did not appear to be elevated. Normal carotid upstrokes and volume. Takes poor deep breath but does follow commands to a degree. No current audible abnormal pulmonary adventitious sounds. Apical impulse not palpable. Heart sounds slightly distant. S4 gallop but no murmur. Abdomen is soft with few distant bowel sounds. Upper extremity pulses were symmetrical and normal. Palpable femoral pulses. Pedal pulses were not palpable, but her lower extremities were both quite warm. Remains least 1 mm pitting edema two-thirds of the way up both lower legs. gambling monitor: This has shown chiefly sinus rhythm without significant ectopic activity. EKG: Tracings taken the past 24 hours have not shown any significant evolutionary change with underlying sinus rhythm. Somewhat low voltages related to her pulmonary disease with minuscule inferior Q waves. Diffuse repolarization abnormalities. INVESTIGATIONS: Blood work today showed a hemoglobin of 10.3 with normal white blood cell count and low platelet count of 78,000. Chemistry this morning showed electrolyte balance with BUN 17, creatinine 0.77, fasting glucose 109. Serial CPK values have shown a peak yesterday of 2189 with negative MB fraction. Troponin I levels reached a peak of 1.4 June 19 and had drifted down to 0.23 yesterday. No followup values were drawn today. IMPRESSION/PLAN: 1. Abnormal EKG: As mentioned, primarily a reflection of her pulmonary disease. Minuscule inferior Q waves, possibly related to remote inferior infarction. Diffuse repolarization abnormalities fortunately do not show any evolutionary change. Has remained free of any significant arrhythmia. 2. Coronary artery disease (chinik vessel)/post coronary artery bypass graft (CABG)/percutaneous transluminal coronary angioplasty (PTCA): Has been free of any chest discomfort. Her minuscule Troponin I rise following her complicated vascular surgery is not a reflection of a perioperative infarction. Her significantly elevated creatine phosphokinase (CPK) is a reflection of skeletal muscle ischemia and injury with her complicated surgery and hypotension. At this point, with her being able to tolerate oral therapy, she will continue on her current isosorbide mononitrate, aspirin 81 mg daily, and atorvastatin 80 mg daily. Her intravenous metoprolol dosage will be discontinued in favor of low-dose metoprolol by mouth with hold parameters. Sublingual nitroglycerine will be ordered for use as necessary. Followup EKG and troponin I/CIP will be obtained tomorrow. 3. Essential hypertension: Has evidence of dependent edema, believed to be a reflection of parenteral fluid administration with her prolonged surgery. Serum albumin 06/02/2018 was 3.8. Followup albumin will be obtained with her renal profile tomorrow. Current blood pressure would be considered fine with oral nitrate therapy alone. We have introduced a low-dose selective beta belen with hold parameters. Followup renal function will be checked tomorrow. 4. Rhabdomyolysis: A reflection of skeletal muscle injury perioperatively. Current total CPK has been increasing, but renal function appears to be unaffected. We have requested followup CPK and renal function tomorrow as mentioned. We will continue to monitor her in Dr. Gilliam's absence and appreciate the opportunity to participate in her care.
[2018-06-21] MEDS: MONTELUKAST 10 MG TAB PO SCH (21:53)
[2018-06-21] MEDS: traZODone 50 MG TAB PO SCH (21:53)
--- NOTE | 2018-06-21 22:33 | ROOPDOC ---
[facility] Report Of Operation Report of Operation Sherman Mack MD Jun 21, 2018 22:33
--- NOTE | 2018-06-21 22:34 | IPNPDOC ---
Subjective General Date/Time Seen The patient was seen on 06/21/18 at 22:33. Subject Chief Complaint/History The patient is a 53-year-old female admitted with a reason for visit of [place]- Iliac Occlusive Disease, Claudication. Patient with no complaints. Patient states her right lower extremity feels better with less pain. Patient feels tired. Current Medications Current Medications Current Medications Acetaminophen (Tylenol Suspension) 650 mg Q6HP PRN GT PAIN OR FEVER Last administered on 06/20/18at 03:04; Start 06/19/18 at 23:45 Acetaminophen/ Hydrocodone Bitart ([place], Anexsia 5/325) 1 tab Q4HP PRN PO MODERATE PAIN (PS 5-7) Last administered on 06/21/18at 09:46; Start 06/19/18 at 20:00 Albuterol/ Ipratropium (Duoneb (Ipr 0.5mg/Alb 2.5mg)) 3 ml RBID INH Last administered on 06/21/18at 19:45; Start 06/20/18 at 08:00 Aspirin (Ecotrin) 81 mg DAILY PO Last administered on 06/21/18at 08:21; Start 06/20/18 at 09:00 Atorvastatin Calcium (Lipitor) 80 mg DAILY PO Last administered on 06/21/18at 08:21; Start 06/20/18 at 09:00 Bupropion HCl (Wellbutrin Sr) 200 mg BID PO Last administered on 06/21/18at 21:53; Start 06/19/18 at 21:00 Cetirizine HCl (ZyrTEC) 10 mg DAILY PO Last administered on 06/21/18at 08:21; Start 06/20/18 at 09:00 Cyclobenzaprine HCl (Flexeril) 10 mg TIDP PRN PO MUSCLE SPASMS; Start 06/19/18 at 20:00 Fentanyl Citrate (Sublimaze) 25 mcg Q5MP PRN IV MODERATE PAIN (PS 4-7); Start 06/19/18 at 20:45; Stop 06/19/18 at 21:45; Status DC Flumazenil (Romazicon) 0.2 mg ASDIRECTED PRN IV LETHERGY Last administered on 06/19/18at 23:13; Start 06/19/18 at 22:45 Isosorbide Mononitrate (Imdur) 30 mg DAILY PO Last administered on 06/21/18at 08:21; Start 06/20/18 at 09:00 Lactated Ringer's 1,000 ml @ 100 mls/hr Q10H IV Last administered on 06/19/18at 19:35; Start 06/19/18 at 20:45; Stop 06/19/18 at 21:45; Status DC Metoclopramide HCl (REGLAN INJection) 10 mg Q6HP PRN IV NAUSEA OR VOMITING; Start 06/19/18 at 20:45; Stop 06/19/18 at 21:45; Status DC Metoclopramide HCl (REGLAN INJection) 10 mg Q8HP PRN IV NAUSEA OR VOMITING Last administered on 06/20/18at 09:01; Start 06/20/18 at 07:15 Metoprolol Tartrate (Lopressor) 2.5 mg STAT STAT IV Last administered on 06/20/18at 07:34; Start 06/20/18 at 07:01; Stop 06/20/18 at 07:05; Status DC Metoprolol Tartrate (Lopressor) 5 mg Q2H IV Last administered on 06/21/18at 13:58; Start 06/20/18 at 14:00; Stop 06/21/18 at 15:49; Status DC Metoprolol Tartrate (Lopressor) 5 mg STAT STAT IV Last administered on 06/20/18at 11:16; Start 06/20/18 at 11:10; Stop 06/20/18 at 11:12; Status DC Metoprolol Tartrate (Lopressor) 25 mg Q6H PO Last administered on 06/21/18at 21:59; Start 06/21/18 at 16:00 Midazolam HCl (Versed) 1 mg ASDIRECTED IV Last administered on 06/19/18at 20:00; Start 06/19/18 at 20:45; Stop 06/19/18 at 21:45; Status DC Montelukast Sodium (Singulair) 10 mg QHS PO Last administered on 06/21/18at 21:53; Start 06/19/18 at 21:00 Morphine Sulfate (Morphine Sulfate Inj) 2 mg Q2HP PRN IV SEVERE PAIN (PS 8-10) Last administered on 06/20/18at 08:03; Start 06/19/18 at 20:00 Naloxone HCl (Narcan) 0.4 mg STAT STAT IV Last administered on 06/19/18at 23:05; Start 06/19/18 at 22:38; Stop 06/19/18 at 22:51; Status DC Nicotine (Nicoderm Cq 21mg) 1 patch DAILY TD Last administered on 06/21/18at 08:21; Start 06/20/18 at 09:00 Nitroglycerin (Nitrostat (1/ 150)) 0.4 mg Q5MP PRN SL CHEST PAIN; Start 06/21/18 at 16:00 Ondansetron HCl (ZOFRAN INJection) 4 mg Q4HP PRN IV NAUSEA OR VOMITING; Start 06/19/18 at 20:45; Stop 06/19/18 at 21:45; Status DC Ondansetron HCl (ZOFRAN INJection) 4 mg Q6HP PRN IV NAUSEA OR VOMITING Last administered on 06/20/18at 19:48; Start 06/19/18 at 20:00 Oxycodone/ Acetaminophen (Percocet 5mg/ 325mg Tablet) 1 tab ASDIRECTED PRN PO MILD/MODERATE PAIN (PS 1-7); Start 06/19/18 at 20:45; Stop 06/19/18 at 21:45; Status DC Pantoprazole Sodium (Protonix) 40 mg DAILY PO Last administered on 06/21/18at 08:21; Start 06/20/18 at 09:00 Phenylephrine HCl (NEOSYNEPHRINE INJection) 10 mg ASDIRECTED IV Last administered on 06/19/18at 19:35; Start 06/19/18 at 21:15; Stop 06/19/18 at 22:15; Status DC Phenylephrine HCl 50 mg/Dextrose 500 ml @ 35 mls/hr [id number] IV Last administered on 06/19/18at 23:08; Start 06/19/18 at 23:00; Status Future Hold Sodium Bicarbonate (Sodium Bicarbonate) 50 meq STAT STAT IV Last administered on 06/19/18at 23:48; Start 06/19/18 at 23:34; Stop 06/19/18 at 23:36; Status DC Sodium Bicarbonate (Sodium Bicarbonate) 50 meq STAT STAT IV Last administered on 06/20/18at 01:57; Start 06/20/18 at 01:32; Stop 06/20/18 at 01:35; Status DC Trazodone HCl (Desyrel) 150 mg QHS PO Last administered on 06/21/18at 21:53; Start 06/19/18 at 21:00 Allergies Coded Allergies: Codeine (Verified Adverse Reaction, Mild, vomiting, 06/09/18) VITAL SIGNS VITAL SIGNS Vital Signs Date Time Temp Pulse Resp B/P (MAP) Pulse Ox O2 Delivery O2 Flow Rate FiO2 06/21/18 21:59 88 122/58 06/21/18 20:00 3.0 06/21/18 20:00 98.1 93 26 111/64 (80) 90 Nasal Cannula 3.0 06/21/18 16:10 89 116/75 06/21/18 16:00 1.0 06/21/18 16:00 98.5 89 19 116/75 (89) Room Air 06/21/18 13:58 92 114/70 06/21/18 12:12 89 126/69 06/21/18 12:00 98.7 89 24 126/69 (88) 96 Nasal Cannula 1.0 06/21/18 12:00 1.0 06/21/18 10:16 22 06/21/18 09:46 22 06/21/18 08:21 119/64 06/21/18 08:20 93 119/65 06/21/18 08:00 1.0 06/21/18 08:00 98.8 88 17 119/64 (82) 95 Nasal Cannula 1.0 06/21/18 06:23 99 109/56 06/21/18 06:00 95 19 118/55 (76) 94 Nasal Cannula 1.0 06/21/18 05:00 93 19 119/56 (77) 88 Nasal Cannula 1.0 06/21/18 04:22 93 115/59 06/21/18 04:00 98.9 95 20 112/56 (74) 94 Nasal Cannula 1.0 06/21/18 03:00 91 19 117/56 (76) 93 Nasal Cannula 1.0 06/21/18 02:33 98 123/58 06/21/18 02:00 97 20 113/56 (75) 90 Nasal Cannula 1.0 06/21/18 01:00 94 19 115/59 (77) 93 Nasal Cannula 1.0 06/21/18 00:00 92 105/68 06/21/18 00:00 98.9 92 20 99/57 (71) 93 Room Air 1.0 06/20/18 23:00 93 19 109/65 (80) 96 Nasal Cannula 1.0 Intake & Output 06/21/18 05:59 Intake Total 210 ml Output Total 815 ml Balance -605 ml Laboratory Tests 06/21/18 04:11: White Blood Count 7.2, Red Blood Count 3.37L, Hemoglobin 10.3#L, Hematocrit 29.9L, Mean Corpuscular Volume 88.7, Mean Corpuscular Hemoglobin 30.6, Mean Corpuscular Hemoglobin Concent 34.4, Red Cell Distribution Width 16.2H, Platelet Count 78L, Nucleated Red Blood Cells % (auto) 0.0, Blood Urea Nitrogen 17, Creatinine 0.77, Sodium Level 140, Potassium Level 4.2, Chloride Level 108H, Carbon Dioxide Level 25, Calcium Level 8.3L, Anion Gap 7L, Glomerular Filtration Rate > 60.0, Fasting Glucose 109H Current Medications Medications (Trade) Dose Ordered Sig/Marty Route PRN Reason Start Time Stop Time Status Last Admin Dose Admin Acetaminophen (Tylenol Suspension) 650 mg Q6HP PRN GT PAIN OR FEVER 06/19/18 23:45 06/20/18 03:04 Acetaminophen/ Hydrocodone Bitart ([place], Anexsia 5/325) 1 tab Q4HP PRN PO MODERATE PAIN (PS 5-7) 06/19/18 20:00 06/21/18 09:46 Albuterol/ Ipratropium (Duoneb (Ipr 0.5mg/Alb 2.5mg)) 3 ml RBID INH 06/20/18 08:00 06/21/18 19:45 Aspirin (Ecotrin) 81 mg DAILY PO 06/20/18 09:00 06/21/18 08:21 Atorvastatin Calcium (Lipitor) 80 mg DAILY PO 06/20/18 09:00 06/21/18 08:21 Bupropion HCl (Wellbutrin Sr) 200 mg BID PO 06/19/18 21:00 06/21/18 21:53 Cetirizine HCl (ZyrTEC) 10 mg DAILY PO 06/20/18 09:00 06/21/18 08:21 Flumazenil (Romazicon) 0.2 mg ASDIRECTED PRN IV LETHERGY 06/19/18 22:45 06/19/18 23:13 Isosorbide Mononitrate (Imdur) 30 mg DAILY PO 06/20/18 09:00 06/21/18 08:21 Metoclopramide HCl (REGLAN INJection) 10 mg Q8HP PRN IV NAUSEA OR VOMITING 06/20/18 07:15 06/20/18 09:01 Metoprolol Tartrate (Lopressor) 25 mg Q6H PO 06/21/18 16:00 06/21/18 21:59 Montelukast Sodium (Singulair) 10 mg QHS PO 06/19/18 21:00 06/21/18 21:53 Morphine Sulfate (Morphine Sulfate Inj) 2 mg Q2HP PRN IV SEVERE PAIN (PS 8-10) 06/19/18 20:00 06/20/18 08:03 Nicotine (Nicoderm Cq 21mg) 1 patch DAILY TD 06/20/18 09:00 06/21/18 08:21 Ondansetron HCl (ZOFRAN INJection) 4 mg Q6HP PRN IV NAUSEA OR VOMITING 06/19/18 20:00 06/20/18 19:48 Pantoprazole Sodium (Protonix) 40 mg DAILY PO 06/20/18 09:00 06/21/18 08:21 Phenylephrine HCl 50 mg/Dextrose 500 ml @ 35 mls/hr [id number] IV 06/19/18 23:00 Future Hold 06/19/18 23:08 Trazodone HCl (Desyrel) 150 mg QHS PO 06/19/18 21:00 06/21/18 21:53 Laboratory Tests 06/20/18 05:06 Red Blood Count 4.35, Mean Corpuscular Volume 85.1, Mean Corpuscular Hemoglobin 30.3, Mean Corpuscular Hemoglobin Concent 35.7, Red Cell Distribution Width 16.1 H, Calcium Level 8.0 L 06/21/18 04:11 Red Blood Count 3.37 L, Mean Corpuscular Volume 88.7, Mean Corpuscular Hemoglobin 30.6, Mean Corpuscular Hemoglobin Concent 34.4, Red Cell Distribution Width 16.2 H, Calcium Level 8.3 L Objective Physical Examination General Exam: Positive: Cooperative (arousable, seems to understand but did not answer questions), Moderate Distress; Negative: Alert Eye Exam: Positive: PERRLA, EOMI ENT Exam: Positive: Atraumatic, Ext Auditory Canal Nml Neck Exam: Positive: Supple; Negative: JVD Chest Exam: Positive: Clear to auscultation, Normal air movement, Diminished (BS in lung bases b/l); Negative: Rales, Rhonchi, Wheezing Heart Exam: Positive: Tachycardic, Regular Rhythm, Normal S1, Normal S2; Negative: Gallops, Murmurs, Rubs Telemetry: Positive: No significant arrhythmia, Sinus Abdomen Exam: Positive: Normal bowel sounds, Soft, Tenderness (RLQ >LLQ, no rebound.) Extremity Exam: Positive: Normal pulses (PP: Rt DP and PT audible biphasic, Lt DP and PT audible biphasic), Swelling (Rt groin and upper thigh large bruise in surgical site, minimal drainage on dressing, no incisional hematoma); Negative: Clubbing, Cyanosis, Edema, Tenderness Skin Exam: Positive: Nl turgor and temperature Neuro Exam: Positive: Normal Speech, Normal Tone, Sensation Intact, Cranial Nerves 3-12 NL, Reflexes 2+ Psych Exam: Positive: Mental status NL (sleepy), Mood NL Assessment/Plan Assessment Patient is status post right common and external iliac artery angioplasty and stenting with extravasation with Gui peroneal hematoma. Patient also underwent a right femoral endarterectomy with patch angioplasty. Patient is doing well postoperatively and will continue with ICU care. Patient is hemodynamically stable. Plan Patient will continue to be monitored in the ICU. Patient will continue to undergo daily H&H evaluation and transfusion as needed. Sherman Mack MD Jun 21, 2018 22:34
[2018-06-22] VITALS: BP 131/66
[2018-06-22 04:00] VITALS: BP 95/53
[2018-06-22] MEDS: METOPROLOL TART 25 MG TABLET PO SCH ×4 (04:00→21:20)
[2018-06-22 05:24] LABS: ALBUMIN 2.3 GM/DL (3.2-5.2); BLOOD UREA NITROGEN 13 MG/DL (7-18); CALCIUM LEVEL 8.4 MG/DL (8.5-10.1); CARBON DIOXIDE LEVEL 32 MEQ/L (21-32); CHLORIDE LEVEL 105 MEQ/L (98-107); CPK CREATINE PHOSPHOKINASE 410 U/L (26-192); CREATININE FOR GFR 0.53 MG/DL (0.55-1.30); GLOMERULAR FILTRATION RATE > 60.0 (>51); GLUCOSE, FASTING 91 MG/DL (70-100); MB/CK RELATIVE INDEX 1.05 (< OR =4); PHOSPHORUS LEVEL 2.3 MG/DL (2.5-4.9); POTASSIUM SERUM 3.8 MEQ/L (3.5-5.1); SODIUM LEVEL 141 MEQ/L (136-145); TROPONIN I 0.03 NG/ML (< 0.10)
[2018-06-22 08:00] VITALS: BP 108/67
[2018-06-22] MEDS: IPRATROPIUM 0.5MG/ALBUTEROL 2.5MG INH SOL UD 3ML (DUONEB)(J7620) INH SCH ×2 (08:03→20:00)
[2018-06-22] MEDS: NICOTINE 21MG/24HR 1 EA TRANSDERMAL TD SCH (09:08)
[2018-06-22] MEDS: buPROPion (WELLBUTRIN SR) 100 MG SR TAB PO SCH ×2 (09:08→21:18)
[2018-06-22] MEDS: ISOSORBIDE MON. (IMDUR) 30 MG XR TAB PO SCH (09:09)
[2018-06-22] MEDS: CETIRIZINE (ZyrTEC) 10 MG TAB PO SCH (09:09)
[2018-06-22] MEDS: PANTOPRAZOLE 40MG TAB (PROTONIX) PO SCH (09:09)
[2018-06-22] MEDS: ATORVASTATIN 20 MG TAB PO SCH (09:09)
[2018-06-22] MEDS: ASPIRIN 81 MG ENTERIC TAB PO SCH (09:10)
--- NOTE | 2018-06-22 09:19 | ECGEPIP ---
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 LA conduction disturbance. Somewhat low limb voltage Rule out prior IWMI. Nonspecific ST/T-wave abnormalities, perhaps less prominent than 06/21/18 Electronically Signed On 06-22-2018 9:19:14 EST by Sherman Eastman
[2018-06-22 12:00] VITALS: BP 122/62
[2018-06-22 14:00] VITALS: BP 120/60
[2018-06-22] MEDS: MONTELUKAST 10 MG TAB PO SCH (21:00)
[2018-06-22] MEDS: NORCO, ANEXSIA 5/325MG TABLET (HYDROcodone/ACETAMINOPHEN) PO PRN (21:19)
[2018-06-22] MEDS: traZODone 50 MG TAB PO SCH (21:20)
[2018-06-22 22:00] VITALS: BP 118/59
--- NOTE | 2018-06-22 22:38 | IPNPDOC ---
Subjective General Date/Time Seen The patient was seen on 06/22/18 at 22:37. Subject Chief Complaint/History The patient is a 53-year-old female admitted with a reason for visit of Aorto- Iliac Occlusive Disease, Claudication. Current Medications Current Medications Current Medications Acetaminophen (Tylenol Suspension) 650 mg Q6HP PRN GT PAIN OR FEVER Last admin istered on 06/20/18at 03:04; Start 06/19/18 at 23:45 Acetaminophen/ Hydrocodone Bitart ([place], Anexsia 5/325) 1 tab Q4HP PRN PO MODERATE PAIN (PS 5-7) Last administered on 06/22/18 21:19; Start 06/19/18 at 20:00 Albuterol/ Ipratropium (Duoneb (Ipr 0.5mg/Alb 2.5mg)) 3 ml RBID INH Last administered on 06/22/18 08:03; Start 06/20/18 at 08:00 Aspirin (Ecotrin) 81 mg DAILY PO Last administered on 06/22/18 09:10; Start 06/20/18 at 09:00 Atorvastatin Calcium (Lipitor) 80 mg DAILY PO Last administered on 06/22/18 09:09; Start 06/20/18 at 09:00 Bupropion HCl (Wellbutrin Sr) 200 mg BID PO Last administered on 06/22/18 21:18; Start 06/19/18 at 21:00 Cetirizine HCl (ZyrTEC) 10 mg DAILY PO Last administered on 06/22/18at 09:09; Start 06/20/18 at 09:00 Cyclobenzaprine HCl (Flexeril) 10 mg TIDP PRN PO MUSCLE SPASMS; Start 06/19/18 at 20:00 Fentanyl Citrate (Sublimaze) 25 mcg Q5MP PRN IV MODERATE PAIN (PS 4-7); Start 06/19/18 at 20:45; Stop 06/19/18 at 21:45; Status DC Flumazenil (Romazicon) 0.2 mg ASDIRECTED PRN IV LETHERGY Last administered on 06/19/18at 23:13; Start 06/19/18 at 22:45 Isosorbide Mononitrate (Imdur) 30 mg DAILY PO Last administered on 06/22/18 09:09; Start 06/20/18 at 09:00 Lactated Ringer's 1,000 ml @ 100 mls/hr Q10H IV Last administered on 06/19/18at 19:35; Start 06/19/18 at 20:45; Stop 06/19/18 at 21:45; Status DC Metoclopramide HCl (REGLAN INJection) 10 mg Q6HP PRN IV NAUSEA OR VOMITING; Start 06/19/18 at 20:45; Stop 06/19/18 at 21:45; Status DC Metoclopramide HCl (REGLAN INJection) 10 mg Q8HP PRN IV NAUSEA OR VOMITING Last administered on 06/20/18at 09:01; Start 06/20/18 at 07:15 Metoprolol Tartrate (Lopressor) 2.5 mg STAT STAT IV Last administered on 06/20/18at 07:34; Start 06/20/18 at 07:01; Stop 06/20/18 at 07:05; Status DC Metoprolol Tartrate (Lopressor) 5 mg Q2H IV Last administered on 06/21/18at 13:58; Start 06/20/18 at 14:00; Stop 06/21/18 at 15:49; Status DC Metoprolol Tartrate (Lopressor) 5 mg STAT STAT IV Last administered on 06/20/18at 11:16; Start 06/20/18 at 11:10; Stop 06/20/18 at 11:12; Status DC Metoprolol Tartrate (Lopressor) 25 mg Q6H PO Last administered on 06/22/18at 21:20; Start 06/21/18 at 16:00 Midazolam HCl (Versed) 1 mg ASDIRECTED IV Last administered on 06/19/18at 20:00; Start 06/19/18 at 20:45; Stop 06/19/18 at 21:45; Status DC Montelukast Sodium (Singulair) 10 mg QHS PO Last administered on 06/22/18at 21:00; Start 06/19/18 at 21:00 Morphine Sulfate (Morphine Sulfate Inj) 2 mg Q2HP PRN IV SEVERE PAIN (PS 8-10) Last administered on 06/20/18at 08:03; Start 06/19/18 at 20:00 Naloxone HCl (Narcan) 0.4 mg STAT STAT IV Last administered on 06/19/18at 23:05; Start 06/19/18 at 22:38; Stop 06/19/18 at 22:51; Status DC Nicotine (Nicoderm Cq 21mg) 1 patch DAILY TD Last administered on 06/22/18at 09:08; Start 06/20/18 at 09:00 Nitroglycerin (Nitrostat (1/ 150)) 0.4 mg Q5MP PRN SL CHEST PAIN; Start 1 08/21/17 at 16:00 Ondansetron HCl (ZOFRAN INJection) 4 mg Q4HP PRN IV NAUSEA OR VOMITING; Start 06/19/18 at 20:45; Stop 06/19/18 at 21:45; Status DC Ondansetron HCl (ZOFRAN INJection) 4 mg Q6HP PRN IV NAUSEA OR VOMITING Last administered on 06/20/18at 19:48; Start 06/19/18 at 20:00 Oxycodone/ Acetaminophen (Percocet 5mg/ 325mg Tablet) 1 tab ASDIRECTED PRN PO MILD/MODERATE PAIN (PS 1-7); Start 06/19/18 at 20:45; Stop 06/19/18 at 21:45; Status DC Pantoprazole Sodium (Protonix) 40 mg DAILY PO Last administered on 06/22/18at 09:09; Start 06/20/18 at 09:00 Phenylephrine HCl (NEOSYNEPHRINE INJection) 10 mg ASDIRECTED IV Last administered on 06/19/18at 19:35; Start 06/19/18 at 21:15; Stop 06/19/18 at 22:15; Status DC Phenylephrine HCl 50 mg/Dextrose 500 ml @ 35 mls/hr [id number] IV Last adminis tered on 06/19/18at 23:08; Start 06/19/18 at 23:00; Status Future Hold Sodium Bicarbonate (Sodium Bicarbonate) 50 meq STAT STAT IV Last administered on 06/19/18at 23:48; Start 06/19/18 at 23:34; Stop 06/19/18 at 23:36; Status DC Sodium Bicarbonate (Sodium Bicarbonate) 50 meq STAT STAT IV Last administered on 06/20/18at 01:57; Start 06/20/18 at 01:32; Stop 06/20/18 at 01:35; Status DC Trazodone HCl (Desyrel) 150 mg QHS PO Last administered on 06/22/18at 21:20; Start 06/19/18 at 21:00 Allergies Coded Allergies: Codeine (Verified Adverse Reaction, Mild, vomiting, 06/09/18) VITAL SIGNS VITAL SIGNS Vital Signs Date Time Temp Pulse Resp B/P (MAP) Pulse Ox O2 Delivery O2 Flow Rate FiO2 06/22/18 21:20 87 118/59 06/22/18 21:19 18 06/22/18 16:00 93 120/60 06/22/18 14:00 99.0 89 16 120/60 (80) 90 Room Air 06/22/18 12:00 98.0 86 18 122/62 (82) 91 Room Air 06/22/18 09:10 108/67 06/22/18 09:09 108/67 06/22/18 08:00 98.5 81 20 108/67 (81) 100 Room Air 06/22/18 04:00 2.0 06/22/18 04:00 76 95/53 06/22/18 04:00 98.1 76 18 95/53 (67) 95 Nasal Cannula 2.0 06/22/18 00:00 3.0 06/22/18 00:00 98.3 85 16 131/66 (87) 98 Nasal Cannula 3.0 Intake & Output 06/22/18 06:00 Intake Total 350 ml Output Total 450 ml Balance -100 ml Laboratory Tests 06/22/18 04:10: Blood Urea Nitrogen 13, Creatinine 0.53L, Sodium Level 141, Potassium Level 3.8, Chloride Level 105, Carbon Dioxide Level 32, Anion Gap 4L, Glomerular Filtration Rate > 60.0, Fasting Glucose 91, Calcium Level 8.4L, Phosphorus Level 2.3L, Total Creatine Kinase 410#H, Creatine Kinase MB 4.0H, Creatine Kinase MB Relative Index 1.05, Troponin I 0.03#, Albumin 2.3L Current Medications Medications (Trade) Dose Ordered Sig/Marty Route PRN Reason Start Time Stop Time Status Last Admin Dose Admin Acetaminophen (Tylenol Suspension) 650 mg Q6HP PRN GT PAIN OR FEVER 06/19/18 23:45 06/20/18 03:04 Acetaminophen/ Hydrocodone Bitart (Marion, Anexsia 5/325) 1 tab Q4HP PRN PO MODERATE PAIN (PS 5-7) 06/19/18 20:00 06/22/18 21:19 Albuterol/ Ipratropium (Duoneb (Ipr 0.5mg/Alb 2.5mg)) 3 ml RBID INH 06/20/18 08:00 06/22/18 08:03 Aspirin (Ecotrin) 81 mg DAILY PO 06/20/18 09:00 06/22/18 09:10 Atorvastatin Calcium (Lipitor) 80 mg DAILY PO 06/20/18 09:00 06/22/18 09:09 Bupropion HCl (Wellbutrin Sr) 200 mg BID PO 06/19/18 21:00 06/22/18 21:18 Cetirizine HCl (ZyrTEC) 10 mg DAILY PO 06/20/18 09:00 06/22/18 09:09 Flumazenil (Romazicon) 0.2 mg ASDIRECTED PRN IV LETHERGY 06/19/18 22:45 06/19/18 23:13 Isosorbide Mononitrate (Imdur) 30 mg DAILY PO 06/20/18 09:00 06/22/18 09:09 Metoclopramide HCl (REGLAN INJection) 10 mg Q8HP PRN IV NAUSEA OR VOMITING 06/20/18 07:15 06/20/18 09:01 Metoprolol Tartrate (Lopressor) 25 mg Q6H PO 06/21/18 16:00 06/22/18 21:20 Montelukast Sodium (Singulair) 10 mg QHS PO 06/19/18 21:00 06/22/18 21:00 Morphine Sulfate (Morphine Sulfate Inj) 2 mg Q2HP PRN IV SEVERE PAIN (PS 8-10) 06/19/18 20:00 06/20/18 08:03 Nicotine (Nicoderm Cq 21mg) 1 patch DAILY TD 06/20/18 09:00 06/22/18 09:08 Ondansetron HCl (ZOFRAN INJection) 4 mg Q6HP PRN IV NAUSEA OR VOMITING 06/19/18 20:00 06/20/18 19:48 Pantoprazole Sodium (Protonix) 40 mg DAILY PO 06/20/18 09:00 06/22/18 09:09 Phenylephrine HCl 50 mg/Dextrose 500 ml @ 35 mls/hr [id number] IV 06/19/18 23:00 Future Hold 06/19/18 23:08 Trazodone HCl (Desyrel) 150 mg QHS PO 06/19/18 21:00 06/22/18 21:20 Laboratory Tests 06/21/18 04:11 Red Blood Count 3.37 L, Mean Corpuscular Volume 88.7, Mean Corpuscular Hemoglobin 30.6, Mean Corpuscular Hemoglobin Concent 34.4, Red Cell Distribution Width 16.2 H, Calcium Level 8.3 L 06/22/18 04:10 Anion Gap 4 L Objective Physical Examination General Exam: Positive: Cooperative (arousable, seems to understand but did not answer questions), Moderate Distress; Negative: Alert Eye Exam: Positive: PERRLA, EOMI ENT Exam: Positive: Atraumatic, Ext Auditory Canal Nml Neck Exam: Positive: Supple; Negative: JVD Chest Exam: Positive: Clear to auscultation, Normal air movement, Diminished (BS in lung bases b/l); Negative: Rales, Rhonchi, Wheezing Heart Exam: Positive: Tachycardic, Regular Rhythm, Normal S1, Normal S2; Negative: Gallops, Murmurs, Rubs Telemetry: Positive: No significant arrhythmia, Sinus Abdomen Exam: Positive: Normal bowel sounds, Soft, Tenderness (RLQ >LLQ, no rebound.) Extremity Exam: Positive: Normal pulses (PP: Rt DP and PT audible biphasic, Lt DP and PT audible biphasic), Swelling (Rt groin and upper thigh large bruise in surgical site, minimal drainage on dressing, no incisional hematoma); Negative: Clubbing, Cyanosis, Edema, Tenderness Skin Exam: Positive: Nl turgor and temperature Neuro Exam: Positive: Normal Speech, Normal Tone, Sensation Intact, Cranial Nerves 3-12 NL, Reflexes 2+ Psych Exam: Positive: Mental status NL (sleepy), Mood NL Assessment/Plan Assessment Patient is doing well postoperatively. Plan Plan to continue with physical therapy with possible rehabilitation. Sherman Mack MD Jun 22, 2018 22:38
[2018-06-23] VITALS (7 sets, daily range): BP systolic 105–125; BP diastolic 56–70
[2018-06-23] MEDS: METOPROLOL TART 25 MG TABLET PO SCH ×4 (04:00→22:57)
[2018-06-23 06:59] LABS: HEMATOCRIT 23.2 % (36.0-47.0); HEMOGLOBIN 7.8 g/dl (12.0-15.5); MEAN CORPUSCULAR HEMOGLOBIN 30.7 pg (27.0-33.0); MEAN CORPUSCULAR HGB CONC 33.6 g/dl (32.0-36.5); MEAN CORPUSCULAR VOLUME 91.3 fl (80.0-96.0); RED BLOOD COUNT 2.54 10^6/uL (4.00-5.40)
[2018-06-23 07:16] LABS: PLATELET COUNT, AUTOMATED 91 10^3/uL (150-450)
[2018-06-23 07:32] LABS: ALBUMIN 2.1 GM/DL (3.2-5.2); BLOOD UREA NITROGEN 9 MG/DL (7-18); CALCIUM LEVEL 8.3 MG/DL (8.5-10.1); CARBON DIOXIDE LEVEL 31 MEQ/L (21-32); CHLORIDE LEVEL 104 MEQ/L (98-107); CREATININE FOR GFR 0.56 MG/DL (0.55-1.30); GLOMERULAR FILTRATION RATE > 60.0 (>51); GLUCOSE, FASTING 92 MG/DL (70-100); PHOSPHORUS LEVEL 1.7 MG/DL (2.5-4.9); POTASSIUM SERUM 3.1 MEQ/L (3.5-5.1); SODIUM LEVEL 141 MEQ/L (136-145)
--- NOTE | 2018-06-23 08:15 | IPN ---
DATE: 06/23/2018 Ms. Bacon is rather withdrawn this morning. I had a hard time waking her up and when I woke her up, her responses were rather delayed, but she denies any chest pain or shortness of breath. VITAL SIGNS: Blood pressure 105/58, heart rate has been mostly in the 80s, she is afebrile, saturation 92% on 2 liters of oxygen. Weight has not been documented this morning yet. Jugular venous pressure is not up. Lungs are reasonably clear to auscultation with good air movement. Heart examination reveals regular rhythm without gallop, rub or murmur. Abdomen is soft. There is no significant peripheral edema. Laboratory shannon, potassium is 3.1, BUN 9, creatinine 0.5, glucose 92, phosphorous 1.7, albumin is 2.1. CBC reveals hemoglobin 7.9, hematocrit 23, platelet count 91,000. ASSESSMENT AND PLAN: Ms. Bacon is a 53-year-old lady who has underlying extensive peripheral revascularization for aortoiliac occlusive disease. It was complicated by significant bleeding and non ST elevation myocardial infarction, even though the troponin elevation was very marginal and she never had any chest discomfort. At this point, from a cardiac perspective, she is on aspirin and maximum dose of atorvastatin and on Toprol. Her rate and blood pressure is reasonably well controlled. There is a new finding today, she again is very anemic and I am afraid that she may need addition blood transfusion. I will leave the decision making to surgical team.
[2018-06-23] MEDS: buPROPion (WELLBUTRIN SR) 100 MG SR TAB PO SCH ×2 (08:46→21:47)
[2018-06-23] MEDS: ASPIRIN 81 MG ENTERIC TAB PO SCH (08:47)
[2018-06-23] MEDS: CETIRIZINE (ZyrTEC) 10 MG TAB PO SCH (08:47)
[2018-06-23] MEDS: ATORVASTATIN 20 MG TAB PO SCH (08:47)
[2018-06-23] MEDS: ISOSORBIDE MON. (IMDUR) 30 MG XR TAB PO SCH (08:49)
[2018-06-23] MEDS: NICOTINE 21MG/24HR 1 EA TRANSDERMAL TD SCH (08:49)
[2018-06-23] MEDS: PANTOPRAZOLE 40MG TAB (PROTONIX) PO SCH (08:49)
[2018-06-23] MEDS: IPRATROPIUM 0.5MG/ALBUTEROL 2.5MG INH SOL UD 3ML (DUONEB)(J7620) INH SCH ×2 (08:58→21:28)
[2018-06-23] MEDS ORDERED: POTASSIUM CHLORIDE 10 MEQ SR TABLET PO ONE (09:00)
--- NOTE | 2018-06-23 11:06 | IPNPDOC ---
Subjective Date Seen The patient was seen on 06/23/18. Subjective Chief Complaint/HPI Sleepy d/t antidepressant. Pt is withdrawn. Objective Physical Examination General Exam: Positive: Cooperative (awake but still drowsy, mumbling not understandable), Moderate Distress; Negative: Alert Eye Exam: Positive: PERRLA, EOMI ENT Exam: Positive: Atraumatic, Ext Auditory Canal Nml Neck Exam: Positive: Supple; Negative: JVD Chest Exam: Positive: Clear to auscultation, Normal air movement; Negative: Rales, Rhonchi, Wheezing Heart Exam: Positive: Rate Normal, Regular Rhythm, Normal S1, Normal S2, Murmurs (3/6 systolic left sternal border); Negative: Gallops, Rubs Telemetry: Positive: No significant arrhythmia, Sinus Abdomen Exam: Positive: Normal bowel sounds, Soft, Tenderness (questionable RLQ tenderness) Extremity Exam: Positive: Normal pulses (PP: 2+ equal b/l), Swelling (Rt groin and upper thigh bruise mostly resolved in surgical site, Incision C/D/I); Negative: Clubbing, Cyanosis, Edema, Tenderness Skin Exam: Positive: Nl turgor and temperature Neuro Exam: Positive: Normal Gait, Strength at 5/5 X4 ext, Normal Tone, Sensation Intact, Cranial Nerves 3-12 NL; Negative: Normal Speech (mumbling), Other Psych Exam: Negative: Mental status NL (slightly withdrawn) Assessment /Plan Assessment 1. POD #4, S/p biiliac stents + Rt fem endarterectomy for severe aortoiliac and Rt femoral atherosclerotic occlusive disease. 2. Postop NonSTEMI, no c/o CP, trop 0.03 06/22, managed by cardiology. 3. Worsening acute blood loss anemia, H&H 7.8/23.2 vs 10.3/29.9. 4. Rt retroperitoneal hematoma stable. 5. Thrombocytopenia plt 91 vs 78. Plan/VTE VTE Prophylaxis Ordered?: Yes Plan 1. Continue current regimen per cardiology 2. PRBC x1. 3. Continue to monitor S/Sx active visceral bleeding, H&H. CT abd will be considered if needed 4. OOB, up to chair 5. Encourage ambulation as able 6. PT fanny & Tx VS, I&O, 24H, Fishbone Vital Signs/I&O Vital Signs Date Time Temp Pulse Resp B/P (MAP) Pulse Ox O2 Delivery O2 Flow Rate FiO2 06/23/18 08:49 105/68 06/23/18 08:48 90 06/23/18 06:00 98.2 18 92 Nasal Cannula 2.0 I&O- Last 24 Hours up to 6 AM 06/23/18 06:00 Intake Total 1230 ml Output Total 2025 ml Balance -795 ml Laboratory Data 24H LABS Laboratory Tests 2 06/23/18 06:21: Nucleated Red Blood Cells % (auto) 0.0, Immature Platelet Fraction 4.8, Blood U gael Nitrogen 9, Creatinine 0.56, Sodium Level 141, Potassium Level 3.1L, Chloride Level 104, Carbon Dioxide Level 31, Anion Gap 6L, Glomerular Filtration Rate > 60.0, Calcium Level 8.3L, Phosphorus Level 1.7#L, Albumin 2.1L CBC/BMP Laboratory Tests 06/23/18 06:21 Red Blood Count 2.54 L, Mean Corpuscular Volume 91.3, Mean Corpuscular Hemoglobin 30.7, Mean Corpuscular Hemoglobin Concent 33.6, Red Cell Distribution Width 15.0 H, Anion Gap 6 L LUCY REGALADO PA-C Jun 23, 2018 11:06
[2018-06-23] MEDS: MONTELUKAST 10 MG TAB PO SCH (21:47)
[2018-06-23] MEDS: traZODone 50 MG TAB PO SCH (21:47)
[2018-06-24] VITALS: BP 125/72
[2018-06-24] MEDS: METOPROLOL TART 25 MG TABLET PO SCH ×4 (04:20→21:16)
[2018-06-24 06:00] VITALS: BP 138/76
[2018-06-24 07:57] LABS: HEMATOCRIT 30.7 % (36.0-47.0); HEMOGLOBIN 10.3 g/dl (12.0-15.5); MEAN CORPUSCULAR HEMOGLOBIN 30.2 pg (27.0-33.0); MEAN CORPUSCULAR HGB CONC 33.6 g/dl (32.0-36.5); PLATELET COUNT, AUTOMATED 108 10^3/uL (150-450); RED BLOOD COUNT 3.41 10^6/uL (4.00-5.40); WHITE BLOOD COUNT 3.7 10^3/uL (4.0-10.0)
[2018-06-24 08:05] LABS: BLOOD UREA NITROGEN 8 MG/DL (7-18); CALCIUM LEVEL 8.4 MG/DL (8.5-10.1); CARBON DIOXIDE LEVEL 30 MEQ/L (21-32); CHLORIDE LEVEL 107 MEQ/L (98-107); CREATININE FOR GFR 0.57 MG/DL (0.55-1.30); GLOMERULAR FILTRATION RATE > 60.0 (>51); GLUCOSE, FASTING 89 MG/DL (70-100); POTASSIUM SERUM 3.7 MEQ/L (3.5-5.1); SODIUM LEVEL 143 MEQ/L (136-145)
--- NOTE | 2018-06-24 08:44 | IPN ---
DATE: 06/24/2018 Mrs. Bacon still behaves in somewhat detached way. She is easily arousable and seems to be lot more alert than she was yesterday or the previous days but still is somewhat sluggish to answer, nevertheless, she denies any chest pain or shortness of breath. She does admit that she has tenderness in the lower abdominal area. She received 2 units of packed red blood cells yesterday. The CBC for this morning revealed improvement of hemoglobin to 10.3, hematocrit 30.7, platelet count is 108,000 and basic metabolic panel fortunately is normal. Vital signs: Blood pressure, 138/76, heart rate mostly 70s and 80s. She is afebrile. Saturation 92% on 1/2 liter of oxygen. Fluid balance yesterday was about 1400 positive. Weight has not been documented this morning. She has been having bowel movements. jugular venous pulse (JVP) is not high. Lungs are clear. Heart exam regular rhythm. No gallop or rub. Abdomen is soft in the epigastrium but there is a fairly large hematoma in her right groin that is fairly tense to palpation. No peripheral edema and peripheral pulses are of decent quality on both sides. LABORATORY: As above. ASSESSMENT/PLAN: Mrs. Bacon is a 53-year-old female who underwent fairly extensive intervention for aortoiliac disease that was complicated by bleeding and episodes of hypotension that led to an STEMI. From cardiac perspective she has not had any chest pain and she has not had any arrhythmias. Her blood pressure and heart rates are well-controlled. As far as the peripheral intervention is concerned the perfusion to lower extremity seems intact. Unfortunately there is a large hematoma and she required additional 2 units of but yesterday. Her hemoglobin is better today, but I do not believe it is safe for the patient to go home yet. I am going to order another CBC for tomorrow, but if all good I think that she can be discharged, this will be left to judgment of vascular surgery. From cardiac perspective I do not have any new recommendations, I would leave her on aspirin (no Plavix due to bleeding), metoprolol and high-dose atorvastatin.
[2018-06-24] MEDS: IPRATROPIUM 0.5MG/ALBUTEROL 2.5MG INH SOL UD 3ML (DUONEB)(J7620) INH SCH ×2 (08:46→20:39)
--- NOTE | 2018-06-24 08:49 | IPNPDOC ---
Subjective Date Seen The patient was seen on 06/24/18. Subjective Chief Complaint/HPI No complaint. +flatus, -BM yet, OOB up in chair yesterday, not ambulate yet. Objective Physical Examination General Exam: Positive: Alert, Cooperative (awake but still drowsy, mumbling not understandable), No Acute Distress Eye Exam: Positive: PERRLA, EOMI ENT Exam: Positive: Atraumatic, Ext Auditory Canal Nml Neck Exam: Positive: Supple; Negative: JVD Chest Exam: Positive: Clear to auscultation, Normal air movement; Negative: Rales, Rhonchi, Wheezing Heart Exam: Positive: Rate Normal, Regular Rhythm, Normal S1, Normal S2, Murmurs (2-3/6 systolic left sternal border); Negative: Gallops, Rubs Telemetry: Positive: No significant arrhythmia, Sinus Abdomen Exam: Positive: BS Hyperactive, Soft; Negative: Tenderness Extremity Exam: Positive: Normal pulses (PP: 2+ equal biphasic b/l), Swelling (Rt groin and upper thigh bruise mostly resolved in surgical site, Incision C/D/I); Negative: Clubbing, Cyanosis, Edema, Tenderness Skin Exam: Positive: Nl turgor and temperature Neuro Exam: Positive: Strength at 5/5 X4 ext, Sensation Intact, Cranial Nerves 3-12 NL; Negative: Normal Speech (mumbling), Other Psych Exam: Positive: Mental status NL, Mood NL, Oriented x 3 Assessment /Plan Assessment 1. POD #5, S/p biiliac stents + Rt fem endarterectomy, doing well afebrile. 2. Rt retroperitoneal hematoma stable, no Sx 3. Acute blood loss anemia, improved s/p PRBC x2, H&H 10.3/30.7 vs 7.8/23.2. 4. Postop NonSTEMI, resolved, on ASA, Metoprolol and high dose statin by cardiology. 5. Thrombocytopenia plt 108 vs 91 Plan/VTE VTE Prophylaxis Ordered?: Yes Plan Continue current regimen Continue ASA, Metoprolol and high dose statin as per cardiology Given the existence of retroperitoneal hematoma, Rec ASA but not Plavix for roasterman antiplatelet Tx as per cardiology PT fanny & Tx Encourage ambulation as able. VS, I&O, 24H, Fishbone Vital Signs/I&O Vital Signs Date Time Temp Pulse Resp B/P (MAP) Pulse Ox O2 Delivery O2 Flow Rate FiO2 06/24/18 06:00 97.7 82 18 138/76 (96) 92 Nasal Cannula 0.5 I&O- Last 24 Hours up to 6 AM 06/24/18 06:00 Intake Total 1630 ml Output Total 400 ml Balance 1230 ml Laboratory Data 24H LABS Laboratory Tests 2 06/24/18 07:32: Nucleated Red Blood Cells % (auto) 0.0, Anion Gap 6L, Glomerular Filtration Rate > 60.0, Blood Urea Nitrogen 8, Creatinine 0.57, Sodium Level 143, Potassium Level 3.7, Chloride Level 107, Carbon Dioxide Level 30, Calcium Level 8.4L CBC/BMP Laboratory Tests 06/24/18 07:32 Red Blood Count 3.41 L, Mean Corpuscular Volume 90.0, Mean Corpuscular Hemoglobin 30.2, Mean Corpuscular Hemoglobin Concent 33.6, Red Cell Distribution Width 15.6 H, Calcium Level 8.4 L LUCY REGALADO PA-C Jun 24, 2018 08:49
[2018-06-24] MEDS: NORCO, ANEXSIA 5/325MG TABLET (HYDROcodone/ACETAMINOPHEN) PO PRN (10:10)
[2018-06-24] MEDS: buPROPion (WELLBUTRIN SR) 100 MG SR TAB PO SCH ×2 (10:11→21:14)
[2018-06-24] MEDS: ISOSORBIDE MON. (IMDUR) 30 MG XR TAB PO SCH (10:11)
[2018-06-24] MEDS: CETIRIZINE (ZyrTEC) 10 MG TAB PO SCH (10:11)
[2018-06-24] MEDS: PANTOPRAZOLE 40MG TAB (PROTONIX) PO SCH (10:11)
[2018-06-24] MEDS: ATORVASTATIN 20 MG TAB PO SCH (10:12)
[2018-06-24] MEDS: NICOTINE 21MG/24HR 1 EA TRANSDERMAL TD SCH (10:12)
[2018-06-24] MEDS: ASPIRIN 81 MG ENTERIC TAB PO SCH (10:12)
[2018-06-24 14:00] VITALS: BP 136/65
[2018-06-24] MEDS: traZODone 50 MG TAB PO SCH (21:14)
[2018-06-24] MEDS: MONTELUKAST 10 MG TAB PO SCH (21:15)
[2018-06-25] MEDS: METOPROLOL TART 25 MG TABLET PO SCH ×4 (04:05→21:52)
[2018-06-25 06:02] LABS: HEMATOCRIT 31.7 % (36.0-47.0); HEMOGLOBIN 10.8 g/dl (12.0-15.5); MEAN CORPUSCULAR HEMOGLOBIN 30.3 pg (27.0-33.0); MEAN CORPUSCULAR HGB CONC 34.1 g/dl (32.0-36.5); PLATELET COUNT, AUTOMATED 135 10^3/uL (150-450); RED BLOOD COUNT 3.56 10^6/uL (4.00-5.40); WHITE BLOOD COUNT 4.1 10^3/uL (4.0-10.0)
[2018-06-25] MEDS: IPRATROPIUM 0.5MG/ALBUTEROL 2.5MG INH SOL UD 3ML (DUONEB)(J7620) INH SCH ×2 (08:17→20:00)
[2018-06-25] MEDS: ATORVASTATIN 20 MG TAB PO SCH (09:09)
[2018-06-25] MEDS: NORCO, ANEXSIA 5/325MG TABLET (HYDROcodone/ACETAMINOPHEN) PO PRN ×3 (09:09→21:54)
[2018-06-25] MEDS: NICOTINE 21MG/24HR 1 EA TRANSDERMAL TD SCH (09:10)
[2018-06-25] MEDS: PANTOPRAZOLE 40MG TAB (PROTONIX) PO SCH (09:10)
[2018-06-25] MEDS: ISOSORBIDE MON. (IMDUR) 30 MG XR TAB PO SCH (09:10)
[2018-06-25] MEDS: buPROPion (WELLBUTRIN SR) 100 MG SR TAB PO SCH ×2 (09:10→21:53)
[2018-06-25] MEDS: ASPIRIN 81 MG ENTERIC TAB PO SCH (09:11)
[2018-06-25] MEDS: CETIRIZINE (ZyrTEC) 10 MG TAB PO SCH (09:11)
[2018-06-25 14:00] VITALS: BP 151/68
--- NOTE | 2018-06-25 17:06 | IPNPDOC ---
Subjective Date Seen The patient was seen on 06/25/18. Subjective Chief Complaint/HPI Feeling better, ambulated x 2, last pm and this am w/o intolerance. Objective Physical Examination General Exam: Positive: Alert, Cooperative (awake but still drowsy, mumbling not understandable), No Acute Distress Eye Exam: Positive: PERRLA, EOMI ENT Exam: Positive: Atraumatic, Ext Auditory Canal Nml Neck Exam: Positive: Supple; Negative: JVD Chest Exam: Positive: Clear to auscultation, Normal air movement; Negative: Rales, Rhonchi, Wheezing Heart Exam: Positive: Rate Normal, Regular Rhythm, Normal S1, Normal S2, Murmurs (2-3/6 systolic left sternal border); Negative: Gallops, Rubs Telemetry: Positive: No significant arrhythmia, Sinus Abdomen Exam: Positive: Soft; Negative: Tenderness Extremity Exam: Positive: Normal pulses (PP: 2+ equal biphasic b/l), Swelling (Rt groin and upper thigh bruise mostly resolved in surgical site, Incision C/D/I); Negative: Clubbing, Cyanosis, Edema, Tenderness Skin Exam: Positive: Nl turgor and temperature Neuro Exam: Positive: Normal Speech, Strength at 5/5 X4 ext, Cranial Nerves 3- 12 NL; Negative: Other Psych Exam: Positive: Mental status NL, Mood NL, Oriented x 3 Assessment /Plan Assessment 1. POD #6, S/p biiliac stents + Rt fem endarterectomy, tolerated ambulation w/o difficulty. 2. Rt retroperitoneal hematoma stable, no Sx 3. Acute blood loss anemia, improved s/p PRBC x2, H&H 10.8/31.7. 4. Postop NonSTEMI, resolved, on ASA, Metoprolol and high dose statin by cardiology. 5. Thrombocytopenia plt 135 Plan/VTE VTE Prophylaxis Ordered?: Yes Plan Continue current regimen. Continue PT, OT eval + Tx. Likely DC to ARU once PT/OT fanny done. VS, I&O, 24H, Fishbone Vital Signs/I&O Vital Signs Date Time Temp Pulse Resp B/P (MAP) Pulse Ox O2 Delivery O2 Flow Rate FiO2 06/25/18 16:37 77 151/68 06/25/18 16:37 15 06/25/18 14:00 98.4 92 Room Air 06/24/18 20:39 1.0 I&O- Last 24 Hours up to 6 AM 06/25/18 05:59 Intake Total 1350 ml Output Total 950 ml Balance 400 ml Laboratory Data 24H LABS Laboratory Tests 2 06/25/18 05:36: Nucleated Red Blood Cells % (auto) 0.5H CBC/BMP Laboratory Tests 06/25/18 05:36 Red Blood Count 3.56 L, Mean Corpuscular Volume 89.0, Mean Corpuscular Hemoglobin 30.3, Mean Corpuscular Hemoglobin Concent 34.1, Red Cell Distribution Width 15.3 H LUCY REGALADO PA-C Jun 25, 2018 17:06
[2018-06-25] MEDS: MONTELUKAST 10 MG TAB PO SCH (21:52)
[2018-06-25] MEDS: traZODone 50 MG TAB PO SCH (21:52)
[2018-06-25 22:00] VITALS: BP 136/69
[2018-06-26] MEDS: METOPROLOL TART 25 MG TABLET PO SCH ×4 (03:33→21:41)
[2018-06-26] MEDS: NORCO, ANEXSIA 5/325MG TABLET (HYDROcodone/ACETAMINOPHEN) PO PRN (03:46)
[2018-06-26 06:00] VITALS: BP 131/69
--- NOTE | 2018-06-26 08:23 | IPN ---
DATE: 06/26/2018 I had to wake up patient this morning again. When she wakes up, she is certainly appropriate but her responses are very delayed even though ultimately I got an answer to all of my questions. She denies any chest pain, shortness of breath. She says that the pain in her abdomen and low back is actually improving. She was able to ambulate yesterday with physical therapy (PT) and there is a tentative plan for short-term rehab. Vital signs this morning, blood pressure 131/69, heart rate has been consistently in 70s and 80s. She is afebrile. Saturating 90-94% on 2 liters. She is afebrile and her weight was documented this morning as 73.2 kg, which is similar to admission weight. She is alert and oriented, appropriate. Jugular venous pulse (JVP) is not high. Lungs are clear. Good air movement. Heart exam reveals regular rhythm without gallop, rub or murmur. Abdomen is somewhat tender over lower quadrants, but the hematoma seems to be actually decreasing size. Bowel sounds are positive. Extremities have no edema and good pulses bilaterally. Laboratory-shannon: No blood work was obtained this morning. Her last complete blood count (CBC) is from yesterday and her hemoglobin was 10.8, hematocrit 31.7 and platelet count 135,000. ASSESSMENT AND PLAN: Mrs. Bacon a 53-year-old female, who has extensive vascular disease. She had fairly large revascularization on both aortoiliac and right femoral arteries. It was complicated by significant blood loss and episode of hypotension and she had a small troponin leak without associated evolution on EKG. She never had any chest discomfort. At this point from my perspective, she is stable to go to rehab. She never had any arrhythmias since the event. She is on aspirin, high-dose statin and low-dose beta belen, and her vital signs have been stable. I tentatively will plan to perform outpatient noninvasive stress test after she recovers from current event. I do not believe that she would benefit from Plavix because she still kept having problems with dropping her hemoglobin. She had significant retroperitoneal bleed.
[2018-06-26] MEDS: IPRATROPIUM 0.5MG/ALBUTEROL 2.5MG INH SOL UD 3ML (DUONEB)(J7620) INH SCH ×2 (08:36→20:20)
[2018-06-26] MEDS: buPROPion (WELLBUTRIN SR) 100 MG SR TAB PO SCH ×2 (09:24→21:39)
[2018-06-26] MEDS: CETIRIZINE (ZyrTEC) 10 MG TAB PO SCH (09:24)
[2018-06-26] MEDS: ATORVASTATIN 20 MG TAB PO SCH (09:24)
[2018-06-26] MEDS: ASPIRIN 81 MG ENTERIC TAB PO SCH (09:24)
[2018-06-26] MEDS: NICOTINE 21MG/24HR 1 EA TRANSDERMAL TD SCH (09:24)
[2018-06-26] MEDS: PANTOPRAZOLE 40MG TAB (PROTONIX) PO SCH (09:25)
[2018-06-26] MEDS: ISOSORBIDE MON. (IMDUR) 30 MG XR TAB PO SCH (09:25)
--- NOTE | 2018-06-26 09:37 | IPNPDOC ---
Subjective Date Seen The patient was seen on 06/26/18. Subjective Chief Complaint/HPI Ambulating x1 yesterday. No other complaint. Objective Physical Examination General Exam: Positive: Alert, Cooperative (speech hard to understand), No Acute Distress Eye Exam: Positive: PERRLA, EOMI ENT Exam: Positive: Atraumatic, Ext Auditory Canal Nml Neck Exam: Positive: Supple; Negative: JVD Chest Exam: Positive: Clear to auscultation, Normal air movement; Negative: Rales, Rhonchi, Wheezing Heart Exam: Positive: Rate Normal, Regular Rhythm, Normal S1, Normal S2, Murmurs (2-3/6 systolic left sternal border); Negative: Gallops, Rubs Telemetry: Positive: No significant arrhythmia, Sinus Abdomen Exam: Positive: Normal bowel sounds, Soft; Negative: Tenderness Extremity Exam: Positive: Normal pulses (PP: 2+ equal biphasic b/l), Swelling (Rt groin and upper thigh bruise mostly resolved in surgical site, Incision C/D/I); Negative: Clubbing, Cyanosis, Edema, Tenderness Skin Exam: Positive: Nl turgor and temperature Neuro Exam: Positive: Strength at 5/5 X4 ext, Cranial Nerves 3-12 NL; Negative: Normal Speech (mumbling most time, hard to understand) Psych Exam: Positive: Mental status NL, Mood NL, Oriented x 3 Assessment /Plan Assessment 1. POD #7, S/p biiliac stents + Rt fem endarterectomy, doing well afebrile. 2. Rt retroperitoneal hematoma stable, no Sx 3. Acute blood loss anemia, improved 4. Postop NonSTEMI, resolved, on ASA, Metoprolol and high dose statin by cardiology. 5. Thrombocytopenia improved. Plan/VTE VTE Prophylaxis Ordered?: Yes Plan Continue current regimen. Increase ambulation as tolerated. PT,OT, IS. Cleared by Cardiology for DC to rehab. Await rehab approval per PT evaluation Will have outpatient noninvasive stress test after recovers from current event. Do not recommend Plavix per cardiology VS, I&O, 24H, Fishbone Vital Signs/I&O Vital Signs Date Time Temp Pulse Resp B/P (MAP) Pulse Ox O2 Delivery O2 Flow Rate FiO2 06/26/18 06:00 97.9 72 18 131/69 (89) 94 Nasal Cannula 2.0 I&O- Last 24 Hours up to 6 AM 06/26/18 06:00 Intake Total 780 ml Output Total 1150 ml Balance -370 ml LUCY REGALADO PA-C Jun 26, 2018 09:37
[2018-06-26 14:00] VITALS: BP 141/71
[2018-06-26] MEDS: MONTELUKAST 10 MG TAB PO SCH (21:00)
[2018-06-26] MEDS: traZODone 50 MG TAB PO SCH (21:39)
[2018-06-26 22:00] VITALS: BP 145/75
[2018-06-27] MEDS: METOPROLOL TART 25 MG TABLET PO SCH ×4 (03:33→21:43)
[2018-06-27 06:00] VITALS: BP 142/67
[2018-06-27] MEDS: IPRATROPIUM 0.5MG/ALBUTEROL 2.5MG INH SOL UD 3ML (DUONEB)(J7620) INH SCH ×2 (07:52→20:18)
[2018-06-27] MEDS: NICOTINE 21MG/24HR 1 EA TRANSDERMAL TD SCH (08:36)
[2018-06-27] MEDS: ASPIRIN 81 MG ENTERIC TAB PO SCH (08:37)
[2018-06-27] MEDS: buPROPion (WELLBUTRIN SR) 100 MG SR TAB PO SCH ×2 (08:37→21:42)
[2018-06-27] MEDS: ATORVASTATIN 20 MG TAB PO SCH (08:37)
[2018-06-27] MEDS: CETIRIZINE (ZyrTEC) 10 MG TAB PO SCH (08:38)
[2018-06-27] MEDS: ISOSORBIDE MON. (IMDUR) 30 MG XR TAB PO SCH (08:38)
[2018-06-27] MEDS: PANTOPRAZOLE 40MG TAB (PROTONIX) PO SCH (08:38)
--- NOTE | 2018-06-27 09:35 | IPNPDOC ---
Subjective Date Seen The patient was seen on 06/27/18. Subjective Chief Complaint/HPI Pain in right groin area, tolerable. Ambulating x1, appetite good, no BM x2 days. Reported episodic hallucination this am. Objective Physical Examination General Exam: Positive: Alert, Cooperative, No Acute Distress Eye Exam: Positive: PERRLA, EOMI ENT Exam: Positive: Atraumatic, Ext Auditory Canal Nml Neck Exam: Positive: Supple; Negative: JVD Chest Exam: Positive: Clear to auscultation, Normal air movement; Negative: Rales, Rhonchi, Wheezing Heart Exam: Positive: Rate Normal, Regular Rhythm, Normal S1, Normal S2, Murmurs (2-3/6 systolic left sternal border); Negative: Gallops, Rubs Telemetry: Positive: No significant arrhythmia, Sinus Abdomen Exam: Positive: Soft; Negative: Tenderness Extremity Exam: Positive: Normal pulses (PP: 2+ equal biphasic b/l), Te nderness, Swelling (Rt groin and upper thigh bruise mostly resolved in surgical site. There is a small hematoma. Incision C/D/I); Negative: Clubbing, Cyanosis, Edema Skin Exam: Positive: Nl turgor and temperature Neuro Exam: Positive: Normal Speech (talk clearly today.), Strength at 5/5 X4 ext, Cranial Nerves 3-12 NL; Negative: Other Psych Exam: Positive: Mental status NL, Mood NL, Oriented x 3 Assessment /Plan Assessment POD #8, S/p biiliac stents + Rt fem endarterectomy, afebrile. Pt has a small hematoma around the incision with pain. But she has not been motivated for ambulation. 2. Rt retroperitoneal hematoma stable, no Sx 3. Acute blood loss anemia. 4. Postop NonSTEMI, resolved, on ASA, Metoprolol and high dose statin by cardiology. 5. Thrombocytopenia. Plan/VTE VTE Prophylaxis Ordered?: Yes Plan 1. Continue current management as per hospital medicine. 2. Increase ambulation as able 3. PT, OT 4. Await insurance approval for ARU. VS, I&O, 24H, Fishbone Vital Signs/I&O Vital Signs Date Time Temp Pulse Resp B/P (MAP) Pulse Ox O2 Delivery O2 Flow Rate FiO2 06/27/18 08:38 144/89 06/27/18 06:00 97.5 74 18 93 06/26/18 14:00 Room Air 06/26/18 06:00 2.0 I&O- Last 24 Hours up to 6 AM 06/27/18 05:59 Intake Total 690 ml Output Total 925 ml Balance -235 ml LUCY REGALADO PA-C Jun 27, 2018 09:35
[2018-06-27 14:00] VITALS: BP 111/51
[2018-06-27] MEDS: traZODone 50 MG TAB PO SCH (21:42)
[2018-06-27] MEDS: MONTELUKAST 10 MG TAB PO SCH (21:43)
[2018-06-27 22:00] VITALS: BP 133/63
[2018-06-28] MEDS: METOPROLOL TART 25 MG TABLET PO SCH ×4 (04:33→20:50)
[2018-06-28 06:00] VITALS: BP 154/80
[2018-06-28] MEDS: IPRATROPIUM 0.5MG/ALBUTEROL 2.5MG INH SOL UD 3ML (DUONEB)(J7620) INH SCH ×2 (07:15→20:15)
[2018-06-28] MEDS: ATORVASTATIN 20 MG TAB PO SCH (09:55)
[2018-06-28] MEDS: buPROPion (WELLBUTRIN SR) 100 MG SR TAB PO SCH ×2 (09:55→20:50)
[2018-06-28] MEDS: PANTOPRAZOLE 40MG TAB (PROTONIX) PO SCH (09:55)
[2018-06-28] MEDS: ASPIRIN 81 MG ENTERIC TAB PO SCH (09:55)
[2018-06-28] MEDS: CETIRIZINE (ZyrTEC) 10 MG TAB PO SCH (09:55)
[2018-06-28] MEDS: NICOTINE 21MG/24HR 1 EA TRANSDERMAL TD SCH (09:56)
[2018-06-28] MEDS: ISOSORBIDE MON. (IMDUR) 30 MG XR TAB PO SCH (09:58)
[2018-06-28 14:00] VITALS: BP 143/69
[2018-06-28] MEDS: traZODone 50 MG TAB PO SCH (20:50)
[2018-06-28] MEDS: MONTELUKAST 10 MG TAB PO SCH (20:50)
[2018-06-28 22:00] VITALS: BP 158/80
[2018-06-29] MEDS: METOPROLOL TART 25 MG TABLET PO SCH ×4 (04:50→21:47)
[2018-06-29 06:00] VITALS: BP 146/72
[2018-06-29] MEDS: IPRATROPIUM 0.5MG/ALBUTEROL 2.5MG INH SOL UD 3ML (DUONEB)(J7620) INH SCH ×2 (08:21→20:03)
[2018-06-29] MEDS: NICOTINE 21MG/24HR 1 EA TRANSDERMAL TD SCH (09:43)
[2018-06-29] MEDS: CETIRIZINE (ZyrTEC) 10 MG TAB PO SCH (09:45)
[2018-06-29] MEDS: PANTOPRAZOLE 40MG TAB (PROTONIX) PO SCH (09:45)
[2018-06-29] MEDS: ASPIRIN 81 MG ENTERIC TAB PO SCH (09:45)
[2018-06-29] MEDS: ATORVASTATIN 20 MG TAB PO SCH (09:45)
[2018-06-29] MEDS: buPROPion (WELLBUTRIN SR) 100 MG SR TAB PO SCH ×2 (09:45→21:46)
[2018-06-29] MEDS: ISOSORBIDE MON. (IMDUR) 30 MG XR TAB PO SCH (09:46)
[2018-06-29 14:00] VITALS: BP 168/75
[2018-06-29] MEDS: MONTELUKAST 10 MG TAB PO SCH (21:47)
[2018-06-29] MEDS: traZODone 50 MG TAB PO SCH (21:47)
[2018-06-29 22:00] VITALS: BP 152/78
--- NOTE | 2018-06-29 22:05 | IPNPDOC ---
Subjective General Date/Time Seen The patient was seen on 06/28/18 at 18:15. Subject Chief Complaint/History The patient is a 53-year-old female admitted with a reason for visit of Aorto- Iliac Occlusive Disease, Claudication. Patient denies complaints. Current Medications Current Medications Current Medications Acetaminophen (Tylenol Suspension) 650 mg Q6HP PRN GT PAIN OR FEVER Last administered on 06/20/18 03:04; Start 06/19/18 at 23:45 Acetaminophen/ Hydrocodone Bitart ([place], Anexsia 5/325) 1 tab Q4HP PRN PO MODERATE PAIN (PS 5-7) Last administered on 06/26/18at 03:46; Start 06/19/18 at 20:00 Albuterol/ Ipratropium (Duoneb (Ipr 0.5mg/Alb 2.5mg)) 3 ml RBID INH Last administered on 06/29/18at 20:03; Start 06/20/18 at 08:00 Aspirin (Ecotrin) 81 mg DAILY PO Last administered on 06/29/18at 09:45; Start 06/20/18 at 09:00 Atorvastatin Calcium (Lipitor) 80 mg DAILY PO Last administered on 06/29/18at 09:45; Start 06/20/18 at 09:00 Bupropion HCl (Wellbutrin Sr) 200 mg BID PO Last administered on 06/29/18at 21:46; Start 06/19/18 at 21:00 Cetirizine HCl (ZyrTEC) 10 mg DAILY PO Last administered on 06/29/18at 09:45; Start 06/20/18 at 09:00 Cyclobenzaprine HCl (Flexeril) 10 mg TIDP PRN PO MUSCLE SPASMS Last administered on 06/25/18at 18:41; Start 06/19/18 at 20:00 Fentanyl Citrate (Sublimaze) 25 mcg Q5MP PRN IV MODERATE PAIN (PS 4-7); Start 06/19/18 at 20:45; Stop 06/19/18 at 21:45; Status DC Flumazenil (Romazicon) 0.2 mg ASDIRECTED PRN IV LETHERGY Last administered on 06/19/18at 23:13; Start 06/19/18 at 22:45 Isosorbide Mononitrate (Imdur) 30 mg DAILY PO Last administered on 06/29/18at 09:46; Start 06/20/18 at 09:00 Lactated Ringer's 1,000 ml @ 100 mls/hr Q10H IV Last administered on 06/19/18at 19:35; Start 06/19/18 at 20:45; Stop 06/19/18 at 21:45; Status DC Metoclopramide HCl (REGLAN INJection) 10 mg Q6HP PRN IV NAUSEA OR VOMITING; Start 06/19/18 at 20:45; Stop 06/19/18 at 21:45; Status DC Metoclopramide HCl (REGLAN INJection) 10 mg Q8HP PRN IV NAUSEA OR VOMITING Last administered on 06/20/18at 09:01; Start 06/20/18 at 07:15 Metoprolol Tartrate (Lopressor) 2.5 mg STAT STAT IV Last administered on 06/20/18at 07:34; Start 06/20/18 at 07:01; Stop 06/20/18 at 07:05; Status DC Metoprolol Tartrate (Lopressor) 5 mg Q2H IV Last administered on 06/21/18at 13:58; Start 06/20/18 at 14:00; Stop 06/21/18 at 15:49; Status DC Metoprolol Tartrate (Lopressor) 5 mg STAT STAT IV Last administered on 06/20/18at 11:16; Start 06/20/18 at 11:10; Stop 06/20/18 at 11:12; Status DC Metoprolol Tartrate (Lopressor) 25 mg Q6H PO Last administered on 06/29/18at 21:47; Start 06/21/18 at 16:00 Midazolam HCl (Versed) 1 mg ASDIRECTED IV Last administered on 06/19/18at 20:00; Start 06/19/18 at 20:45; Stop 06/19/18 at 21:45; Status DC Montelukast Sodium (Singulair) 10 mg QHS PO Last administered on 06/29/18at 21:47; Start 06/19/18 at 21:00 Morphine Sulfate (Morphine Sulfate Inj) 2 mg Q2HP PRN IV SEVERE PAIN (PS 8-10) Last administered on 06/20/18at 08:03; Start 06/19/18 at 20:00; Stop 06/25/18 at 10:33; Status DC Naloxone HCl (Narcan) 0.4 mg STAT STAT IV Last administered on 06/19/18at 23:05; Start 06/19/18 at 22:38; Stop 06/19/18 at 22:51; Status DC Nicotine (Nicoderm Cq 21mg) 1 patch DAILY TD Last administered on 06/29/18at 09:43; Start 06/20/18 at 09:00 Nitroglycerin (Nitrostat (1/ 150)) 0.4 mg Q5MP PRN SL CHEST PAIN; Start 06/21/18 at 16:00 Ondansetron HCl (ZOFRAN INJection) 4 mg Q4HP PRN IV NAUSEA OR VOMITING; Start 06/19/18 at 20:45; Stop 06/19/18 at 21:45; Status DC Ondansetron HCl (ZOFRAN INJection) 4 mg Q6HP PRN IV NAUSEA OR VOMITING Last administered on 06/20/18at 19:48; Start 06/19/18 at 20:00 Oxycodone/ Acetaminophen (Percocet 5mg/ 325mg Tablet) 1 tab ASDIRECTED PRN PO MILD/MODERATE PAIN (PS 1-7); Start 06/19/18 at 20:45; Stop 06/19/18 at 21:45; Status DC Pantoprazole Sodium (Protonix) 40 mg DAILY PO Last administered on 06/29/18at 09:45; Start 06/20/18 at 09:00 Phenylephrine HCl (NEOSYNEPHRINE INJection) 10 mg ASDIRECTED IV Last administered on 06/19/18at 19:35; Start 06/19/18 at 21:15; Stop 06/19/18 at 22:15 ; Status DC Phenylephrine HCl 50 mg/Dextrose 500 ml @ 35 mls/hr [id number] IV Last administered on 06/19/18at 23:08; Start 06/19/18 at 23:00; Stop 06/25/18 at 08:35; Status DC Sodium Bicarbonate (Sodium Bicarbonate) 50 meq STAT STAT IV Last administered on 06/19/18at 23:48; Start 06/19/18 at 23:34; Stop 06/19/18 at 23:36; Status DC Sodium Bicarbonate (Sodium Bicarbonate) 50 meq STAT STAT IV Last administered on 06/20/18at 01:57; Start 06/20/18 at 01:32; Stop 06/20/18 at 01:35; Status DC Trazodone HCl (Desyrel) 150 mg QHS PO Last administered on 06/29/18at 21:47; Start 06/19/18 at 21:00 Allergies Coded Allergies: Codeine (Verified Adverse Reaction, Mild, vomiting, 06/09/18) VITAL SIGNS VITAL SIGNS Afebrile and vital signs stable. Objective Physical Examination General Exam: Positive: Alert, Cooperative, No Acute Distress Eye Exam: Positive: PERRLA, EOMI ENT Exam: Positive: Atraumatic, Ext Auditory Canal Nml Neck Exam: Positive: Supple; Negative: JVD Chest Exam: Positive: Clear to auscultation, Normal air movement; Negative: Rales, Rhonchi, Wheezing Heart Exam: Positive: Rate Normal, Regular Rhythm, Normal S1, Normal S2, Murmurs (2-3/6 systolic left sternal border); Negative: Gallops, Rubs Telemetry: Positive: No significant arrhythmia, Sinus Abdomen Exam: Positive: Soft; Negative: Tenderness Extremity Exam: Positive: Normal pulses (PP: 2+ equal biphasic b/l), Tenderness, Swelling (Rt groin and upper thigh bruise mostly resolved in surgical site. There is a small hematoma. Incision C/D/I); Negative: Clubbing, Cyanosis, Edema Skin Exam: Positive: Nl turgor and temperature Neuro Exam: Positive: Normal Speech (talk clearly today.), Strength at 5/5 X4 ext, Cranial Nerves 3-12 NL; Negative: Other Psych Exam: Positive: Mental status NL, Mood NL, Oriented x 3 Assessment/Plan Assessment 53-year-old female status post femoral endarterectomy. Patient is stable and improving and continues to work with physical therapy. Plan Possible transfer to rehabilitation versus discharged home pending continued evaluation and treatment with physical therapy. Sherman Mack MD Jun 29, 2018 22:05
--- NOTE | 2018-06-29 22:08 | IPNPDOC ---
Subjective General Date/Time Seen The patient was seen on 06/29/18 at 16:05. Subject Chief Complaint/History The patient is a 53-year-old female admitted with a reason for visit of Aorto- Iliac Occlusive Disease, Claudication. Patient without complaints. Current Medications Current Medications Current Medications Acetaminophen (Tylenol Suspension) 650 mg Q6HP PRN GT PAIN OR FEVER Last administered on 06/20/18 03:04; Start 06/19/18 at 23:45 Acetaminophen/ Hydrocodone Bitart ([place], Anexsia 5/325) 1 tab Q4HP PRN PO MODERATE PAIN (PS 5-7) Last administered on 06/26/18 03:46; Start 06/19/18 at 20:00 Albuterol/ Ipratropium (Duoneb (Ipr 0.5mg/Alb 2.5mg)) 3 ml RBID INH Last administered on 06/29/18at 20:03; Start 06/20/18 at 08:00 Aspirin (Ecotrin) 81 mg DAILY PO Last administered on 06/29/18at 09:45; Start 06/20/18 at 09:00 Atorvastatin Calcium (Lipitor) 80 mg DAILY PO Last administered on 06/29/18at 09:45; Start 06/20/18 at 09:00 Bupropion HCl (Wellbutrin Sr) 200 mg BID PO Last administered on 06/29/18at 21:46; Start 06/19/18 at 21:00 Cetirizine HCl (ZyrTEC) 10 mg DAILY PO Last administered on 06/29/18at 09:45; Start 06/20/18 at 09:00 Cyclobenzaprine HCl (Flexeril) 10 mg TIDP PRN PO MUSCLE SPASMS Last administered on 06/25/18at 18:41; Start 06/19/18 at 20:00 Fentanyl Citrate (Sublimaze) 25 mcg Q5MP PRN IV MODERATE PAIN (PS 4-7); Start 06/19/18 at 20:45; Stop 06/19/18 at 21:45; Status DC Flumazenil (Romazicon) 0.2 mg ASDIRECTED PRN IV LETHERGY Last administered on 06/19/18at 23:13; Start 06/19/18 at 22:45 Isosorbide Mononitrate (Imdur) 30 mg DAILY PO Last administered on 06/29/18at 09:46; Start 06/20/18 at 09:00 Lactated Ringer's 1,000 ml @ 100 mls/hr Q10H IV Last administered on 06/19/18at 19:35; Start 06/19/18 at 20:45; Stop 06/19/18 at 21:45; Status DC Metoclopramide HCl (REGLAN INJection) 10 mg Q6HP PRN IV NAUSEA OR VOMITING; Start 06/19/18 at 20:45; Stop 06/19/18 at 21:45; Status DC Metoclopramide HCl (REGLAN INJection) 10 mg Q8HP PRN IV NAUSEA OR VOMITING Last administered on 06/20/18at 09:01; Start 06/20/18 at 07:15 Metoprolol Tartrate (Lopressor) 2.5 mg STAT STAT IV Last administered on 06/20/18at 07:34; Start 06/20/18 at 07:01; Stop 06/20/18 at 07:05; Status DC Metoprolol Tartrate (Lopressor) 5 mg Q2H IV Last administered on 06/21/18at 13:58; Start 06/20/18 at 14:00; Stop 06/21/18 at 15:49; Status DC Metoprolol Tartrate (Lopressor) 5 mg STAT STAT IV Last administered on 06/20/18at 11:16; Start 06/20/18 at 11:10; Stop 06/20/18 at 11:12; Status DC Metoprolol Tartrate (Lopressor) 25 mg Q6H PO Last administered on 06/29/18at 21:47; Start 06/21/18 at 16:00 Midazolam HCl (Versed) 1 mg ASDIRECTED IV Last administered on 06/19/18at 20:00; Start 06/19/18 at 20:45; Stop 06/19/18 at 21:45; Status DC Montelukast Sodium (Singulair) 10 mg QHS PO Last administered on 06/29/18at 21:47; Start 06/19/18 at 21:00 Morphine Sulfate (Morphine Sulfate Inj) 2 mg Q2HP PRN IV SEVERE PAIN (PS 8-10) Last administered on 06/20/18at 08:03; Start 06/19/18 at 20:00; Stop 06/25/18 at 10:33; Status DC Naloxone HCl (Narcan) 0.4 mg STAT STAT IV Last administered on 06/19/18at 23:05; Start 06/19/18 at 22:38; Stop 06/19/18 at 22:51; Status DC Nicotine (Nicoderm Cq 21mg) 1 patch DAILY TD Last administered on 06/29/18at 09:43; Start 06/20/18 at 09:00 Nitroglycerin (Nitrostat (1/ 150)) 0.4 mg Q5MP PRN SL CHEST PAIN; Start 06/21/18 at 16:00 Ondansetron HCl (ZOFRAN INJection) 4 mg Q4HP PRN IV NAUSEA OR VOMITING; Start 06/19/18 at 20:45; Stop 06/19/18 at 21:45; Status DC Ondansetron HCl (ZOFRAN INJection) 4 mg Q6HP PRN IV NAUSEA OR VOMITING Last administered on 06/20/18at 19:48; Start 06/19/18 at 20:00 Oxycodone/ Acetaminophen (Percocet 5mg/ 325mg Tablet) 1 tab ASDIRECTED PRN PO MILD/MODERATE PAIN (PS 1-7); Start 06/19/18 at 20:45; Stop 06/19/18 at 21:45; Status DC Pantoprazole Sodium (Protonix) 40 mg DAILY PO Last administered on 06/29/18at 09:45; Start 06/20/18 at 09:00 Phenylephrine HCl (NEOSYNEPHRINE INJection) 10 mg ASDIRECTED IV Last administered on 06/19/18at 19:35; Start 06/19/18 at 21:15; Stop 06/19/18 at 22:1 5; Status DC Phenylephrine HCl 50 mg/Dextrose 500 ml @ 35 mls/hr [id number] IV Last administered on 06/19/18at 23:08; Start 06/19/18 at 23:00; Stop 06/25/18 at 08:35; Status DC Sodium Bicarbonate (Sodium Bicarbonate) 50 meq STAT STAT IV Last administered on 06/19/18at 23:48; Start 06/19/18 at 23:34; Stop 06/19/18 at 23:36; Status DC Sodium Bicarbonate (Sodium Bicarbonate) 50 meq STAT STAT IV Last administered on 06/20/18at 01:57; Start 06/20/18 at 01:32; Stop 06/20/18 at 01:35; Status DC Trazodone HCl (Desyrel) 150 mg QHS PO Last administered on 06/29/18at 21:47; Start 06/19/18 at 21:00 Allergies Coded Allergies: Codeine (Verified Adverse Reaction, Mild, vomiting, 06/09/18) VITAL SIGNS VITAL SIGNS Vital Signs Date Time Temp Pulse Resp B/P (MAP) Pulse Ox O2 Delivery O2 Flow Rate FiO2 06/29/18 21:47 70 152/67 06/29/18 16:09 70 152/67 06/29/18 14:00 98.4 69 17 168/75 (106) 98 Room Air 06/29/18 09:46 108/71 06/29/18 09:44 69 108/71 06/29/18 06:00 98.9 64 16 146/72 (96) 94 Room Air 06/29/18 04:50 68 140/69 Intake & Output 06/29/18 05:59 Intake Total 985 ml Output Total 0 ml Balance 985 ml Current Medications Medications (Trade) Dose Ordered Sig/Marty Route PRN Reason Start Time Stop Time Status Last Admin Dose Admin Acetaminophen (Tylenol Suspension) 650 mg Q6HP PRN GT PAIN OR FEVER 06/19/18 23:45 06/20/18 03:04 Acetaminophen/ Hydrocodone Bitart ([place], Anexsia 5/325) 1 tab Q4HP PRN PO MODERATE PAIN (PS 5-7) 06/19/18 20:00 06/26/18 03:46 Albuterol/ Ipratropium (Duoneb (Ipr 0.5mg/Alb 2.5mg)) 3 ml RBID INH 06/20/18 08:00 06/29/18 20:03 Aspirin (Ecotrin) 81 mg DAILY PO 06/20/18 09:00 06/29/18 09:45 Atorvastatin Calcium (Lipitor) 80 mg DAILY PO 06/20/18 09:00 06/29/18 09:45 Bupropion HCl (Wellbutrin Sr) 200 mg BID PO 06/19/18 21:00 06/29/18 21:46 Cetirizine HCl (ZyrTEC) 10 mg DAILY PO 06/20/18 09:00 06/29/18 09:45 Cyclobenzaprine HCl (Flexeril) 10 mg TIDP PRN PO MUSCLE SPASMS 06/19/18 20:00 06/25/18 18:41 Flumazenil (Romazicon) 0.2 mg ASDIRECTED PRN IV LETHERGY 06/19/18 22:45 06/19/18 23:13 Isosorbide Mononitrate (Imdur) 30 mg DAILY PO 06/20/18 09:00 06/29/18 09:46 Metoclopramide HCl (REGLAN INJection) 10 mg Q8HP PRN IV NAUSEA OR VOMITING 06/20/18 07:15 06/20/18 09:01 Metoprolol Tartrate (Lopressor) 25 mg Q6H PO 06/21/18 16:00 06/29/18 21:47 Montelukast Sodium (Singulair) 10 mg QHS PO 06/19/18 21:00 06/29/18 21:47 Nicotine (Nicoderm Cq 21mg) 1 patch DAILY TD 06/20/18 09:00 06/29/18 09:43 Ondansetron HCl (ZOFRAN INJection) 4 mg Q6HP PRN IV NAUSEA OR VOMITING 06/19/18 20:00 06/20/18 19:48 Pantoprazole Sodium (Protonix) 40 mg DAILY PO 06/20/18 09:00 06/29/18 09:45 Trazodone HCl (Desyrel) 150 mg QHS PO 06/19/18 21:00 06/29/18 21:47 Objective Physical Examination General Exam: Positive: Alert, Cooperative, No Acute Distress Eye Exam: Positive: PERRLA, EOMI ENT Exam: Positive: Atraumatic, Ext Auditory Canal Nml Neck Exam: Positive: Supple; Negative: JVD Chest Exam: Positive: Clear to auscultation, Normal air movement; Negative: Rales, Rhonchi, Wheezing Heart Exam: Positive: Rate Normal, Regular Rhythm, Normal S1, Normal S2, Murmurs (2-3/6 systolic left sternal border); Negative: Gallops, Rubs Telemetry: Positive: No significant arrhythmia, Sinus Abdomen Exam: Positive: Soft; Negative: Tenderness Extremity Exam: Positive: Normal pulses (PP: 2+ equal biphasic b/l), Tenderness, Swelling (Rt groin and upper thigh bruise mostly resolved in surgical site. There is a small hematoma. Incision C/D/I); Negative: Clubbing, Cyanosis, Edema Skin Exam: Positive: Nl turgor and temperature Neuro Exam: Positive: Normal Speech (talk clearly today.), Strength at 5/5 X4 ext, Cranial Nerves 3-12 NL; Negative: Other Psych Exam: Positive: Mental status NL, Mood NL, Oriented x 3 Assessment/Plan Assessment Patient is status post femoral endarterectomy with patch angioplasty and stenting. Patient is doing well postoperatively. Patient continues to progress with physical therapy. Plan Patient continues to progress and working with physical therapy. Possible transfer to acute rehabilitation versus discharge home depending continue to work and evaluation by physical therapy. Sherman Mack MD Jun 29, 2018 22:08
[2018-06-30] MEDS: METOPROLOL TART 25 MG TABLET PO SCH ×4 (03:58→21:10)
[2018-06-30 06:00] VITALS: BP 144/67
[2018-06-30] MEDS: IPRATROPIUM 0.5MG/ALBUTEROL 2.5MG INH SOL UD 3ML (DUONEB)(J7620) INH SCH ×2 (07:56→20:22)
[2018-06-30] MEDS: PANTOPRAZOLE 40MG TAB (PROTONIX) PO SCH (09:04)
[2018-06-30] MEDS: buPROPion (WELLBUTRIN SR) 100 MG SR TAB PO SCH ×2 (09:04→21:10)
[2018-06-30] MEDS: NICOTINE 21MG/24HR 1 EA TRANSDERMAL TD SCH (09:04)
[2018-06-30] MEDS: CETIRIZINE (ZyrTEC) 10 MG TAB PO SCH (09:04)
[2018-06-30] MEDS: ASPIRIN 81 MG ENTERIC TAB PO SCH (09:04)
[2018-06-30] MEDS: ATORVASTATIN 20 MG TAB PO SCH (09:04)
[2018-06-30] MEDS: ISOSORBIDE MON. (IMDUR) 30 MG XR TAB PO SCH (09:07)
--- NOTE | 2018-06-30 13:06 | IPNPDOC ---
Subjective Date Seen The patient was seen on 06/30/18. Subjective Chief Complaint/HPI No ambulation during the weekend. Ambulating x1 with PT this am. Cleared by PT for DC home as per RN. But pt states her boyfriend is not willing to take care of her if DC home. Objective Physical Examination General Exam: Positive: Alert, Cooperative, No Acute Distress Eye Exam: Positive: PERRLA, EOMI ENT Exam: Positive: Atraumatic, Ext Auditory Canal Nml Neck Exam: Positive: Supple; Negative: JVD Chest Exam: Positive: Clear to auscultation, Normal air movement; Negative: Rales, Rhonchi, Wheezing Heart Exam: Positive: Rate Normal, Regular Rhythm, Normal S1, Normal S2, Murmu rs (2-3/6 systolic left sternal border); Negative: Gallops, Rubs Telemetry: Positive: No significant arrhythmia, Sinus Abdomen Exam: Positive: Soft; Negative: Tenderness Extremity Exam: Positive: Normal pulses (PP: 2+ equal biphasic b/l), Tenderness; Negative: Clubbing, Cyanosis, Edema Skin Exam: Positive: Nl turgor and temperature Neuro Exam: Positive: Normal Speech (talk clearly today.), Strength at 5/5 X4 ext, Cranial Nerves 3-12 NL; Negative: Other Psych Exam: Positive: Mental status NL, Mood NL, Oriented x 3 Assessment /Plan Assessment POD #11, S/p biiliac stents + Rt fem endarterectomy, Cleared by PT for DC home. will d/c with pt's boyfriend regarding DC plan, to home vs home care. Plan/VTE VTE Prophylaxis Ordered?: Yes Plan Continue current medical management. Increase ambulation. PT. DC home vs home care tomorrow. VS, I&O, 24H, Fishbone Vital Signs/I&O Vital Signs Date Time Temp Pulse Resp B/P (MAP) Pulse Ox O2 Delivery O2 Flow Rate FiO2 06/30/18 09:07 72 126/67 06/30/18 06:00 98.4 18 90 Room Air 06/26/18 06:00 2.0 I&O- Last 24 Hours up to 6 AM 06/30/18 06:00 Intake Total 1230 ml Output Total 1525 ml Balance -295 ml LUCY REGALADO PA-C Jun 30, 2018 13:06
[2018-06-30 14:00] VITALS: BP 134/68
[2018-06-30] MEDS: traZODone 50 MG TAB PO SCH (21:10)
[2018-06-30] MEDS: MONTELUKAST 10 MG TAB PO SCH (21:10)
[2018-06-30 22:00] VITALS: BP 130/85
[2018-07-01] MEDS: METOPROLOL TART 25 MG TABLET PO SCH ×2 (03:36→09:17)
[2018-07-01 06:00] VITALS: BP 131/72
[2018-07-01] MEDS: IPRATROPIUM 0.5MG/ALBUTEROL 2.5MG INH SOL UD 3ML (DUONEB)(J7620) INH SCH (07:53)
[2018-07-01] MEDS ORDERED: PLAV1TAB2 PO (09:12)
[2018-07-01] MEDS ORDERED: NORCOTAB PO (09:12)
--- NOTE | 2018-07-01 09:14 | IPNPDOC ---
Subjective Date Seen The patient was seen on 07/01/18. Subjective Chief Complaint/HPI Feeling good, no complaint. ambulating x2 with PT yesterday w/o difficulty. Objective Physical Examination General Exam: Positive: Alert, Cooperative, No Acute Distress Eye Exam: Positive: PERRLA, EOMI ENT Exam: Positive: Atraumatic, Ext Auditory Canal Nml Neck Exam: Positive: Supple; Negative: JVD Chest Exam: Positive: Clear to auscultation, Normal air movement; Negative: Rales, Rhonchi, Wheezing Heart Exam: Positive: Rate Normal, Regular Rhythm, Normal S1, Normal S2, Murmurs (2-3/6 systolic left sternal border); Negative: Gallops, Rubs Telemetry: Positive: No significant arrhythmia, Sinus Abdomen Exam: Positive: Soft; Negative: Tenderness Extremity Exam: Positive: Normal pulses (PP: 2+ equal biphasic b/l), Other (Incision C/D/I with erythema and induation around fer. ); Negative: Clubbing, Cyanosis, Edema Skin Exam: Positive: Nl turgor and temperature Neuro Exam: Positive: Normal Speech (talk clearly today.), Strength at 5/5 X4 ext, Cranial Nerves 3-12 NL; Negative: Other Psych Exam: Positive: Mental status NL, Mood NL, Oriented x 3 Assessment /Plan Assessment POD #11, S/p biiliac stents + Rt fem endarterectomy, doing well. Cleared by PT. Plan/VTE VTE Prophylaxis Ordered?: Yes Plan 1. DC home today. 2. Fer removed. 3. Outpatient PT. 4. F/u with Dr Mack in 1 week. 5. F/u with Dr Gilliam in 1 mo. VS, I&O, 24H, Fishbone Vital Signs/I&O Vital Signs Date Time Temp Pulse Resp B/P (MAP) Pulse Ox O2 Delivery O2 Flow Rate FiO2 07/01/18 06:00 98.6 64 17 131/72 (91) 91 Room Air 06/30/18 22:00 0.5 I&O- Last 24 Hours up to 6 AM 07/01/18 05:59 Intake Total 1870 ml Output Total 850 ml Balance 1020 ml LUCY REGALADO PA-C Jul 01, 2018 09:14
[2018-07-01] MEDS: ATORVASTATIN 20 MG TAB PO SCH (09:17)
[2018-07-01] MEDS: buPROPion (WELLBUTRIN SR) 100 MG SR TAB PO SCH (09:17)
[2018-07-01] MEDS: ASPIRIN 81 MG ENTERIC TAB PO SCH (09:17)
[2018-07-01] MEDS: CETIRIZINE (ZyrTEC) 10 MG TAB PO SCH (09:17)
[2018-07-01] MEDS: PANTOPRAZOLE 40MG TAB (PROTONIX) PO SCH (09:17)
--- NOTE | 2018-07-01 09:17 | DS.PDOC ---
Discharge Summary General Date of Admission Jun 19, 2018 at 09:19 Date of Discharge 07/01/18 Attending Physician: Sherman Mack MD Specialist/Consultants Involve: Giancarlo Gilliam MD Discharge Summary PROCEDURES PERFORMED DURING STAY: Angioplasty with biiliac stents + Rt fem endarterectomy ADMITTING DIAGNOSES: 1. Severe aortoiliac and Rt femoral atherosclerotic occlusive disease. 2. CAD with Hx FL s/p CABG x2 2009. 3. COPD on RT. DISCHARGE DIAGNOSES: 1. Severe aortoiliac and Rt femoral atherosclerotic occlusive disease. 2.Rt retroperitoneal hematoma stable. 3. Postop NonSTEMI resolved. 4. Acute blood loss anemia. 5. Thrombocytopenia. 6. COPD COMPLICATIONS/CHIEF COMPLAINT: Aorto-Iliac Occlusive Disease, Claudication. HISTORY OF PRESENT ILLNESS: Patient is a 53-year-old female who underwent angiography due to claudication in her lower extremities which showed complete occlusion of her right external iliac artery and common femoral artery as well as the proximal superficial femoral and profunda femoris arteries. Patient also has severe aortoiliac atherosclerotic arterial occlusive disease with severe stenosis of the left common iliac and right common iliac arteries. Patient was unable to undergo endovascular repair of her severe atherosclerotic arterial occlusive disease and the recommendation was to undergo a right femoral endarterectomy with patch angioplasty with possible concomitant recanalization of the right external iliac artery with bilateral common and external iliac artery angioplasty and stenting possibly. Patient may also require a left right femoral femoral bypass grafting as well as possible femoral to superficial femoral and popliteal artery bypass grafting. HOSPITAL COURSE: Patient underwent angioplasty with biiliac stents and Rt femoral endarterectomy on 06/19/18. The procedure complicated with retroperitoneal hematoma. Please refer to Dr. Mack's OP note for detail. Patient was transfused 6 units of PRBCs in total for acute blood loss anemia. The Rt retroperitoneal hematoma has been stable. Patient also developed an episode of nonSTEMI postoperatively. Dr Gilliam of cardiology was consulted for medical management. Patient now was asymptomatic and her cardiac enzyme returned normal. Neela Gilliam's work was highly appreciated. Patient now resumed her ability for routine daily activity and ambulation. Her wound was healing well and fer were removed. Patient was ready to discharge home with outpatient physical therapy as per PT. DISCHARGE MEDICATIONS: Please see below. ALLERGIES: Please see below. PHYSICAL EXAMINATION ON DISCHARGE: VITAL SIGNS: Please see below. GENERAL: AAO x3 no acute distress. HEENT: NCAD, DOUG, EOMI. NECK: Supple. CARDIOVASCULAR EXAMINATION: RRR, NO G/M/R. PP: 2+ equal b/l RESPIRATORY EXAMINATION: CTAB, decreased BS, no W/R/R. ABDOMINAL EXAMINATION: BS nl, NT/ND EXTREMITIES: C/C/E SKIN: moist and warm. NEUROLOGICAL EXAMINATION: CN2-12, motor and sensation intact no focal deficits. PSYCHIATRIC EXAMINATION: appropriate mood and affect. LABORATORY DATA: Please see below. IMAGING: None PROGNOSIS: good ACTIVITY: As tolerated. DIET: DASH DISCHARGE PLAN: discharge today DISPOSITION: home with outpatient PT DISCHARGE INSTRUCTIONS: 1. Keep wound clean and cry. 2. No strenuous activity x4 weeks. 3. Can have shower. 4. No driving prior to office visit. ITEMS TO FOLLOWUP ON ON OUTPATIENT: 1. Ourpatient PT 2 F/u with Dr Mack in 1 week. 3. F/u With Dr Gilliam in 1 mo. DISCHARGE CONDITION: good TIME SPENT ON DISCHARGE: Greater than 60 minutes. Vital Signs/I&Os Vital Signs Date Time Temp Pulse Resp B/P (MAP) Pulse Ox O2 Delivery O2 Flow Rate FiO2 07/01/18 06:00 98.6 64 17 131/72 (91) 91 Room Air 06/30/18 22:00 0.5 I&O- Last 24 Hours up to 6 AM 07/01/18 05:59 Intake Total 1870 ml Output Total 850 ml Balance 1020 ml Discharge Medications Scheduled (Striverdi Respimat) 2.5 Mcg/Act Aer, 2.5 MCG INH PRN, (Reported) Albuterol/Ipratropium (Combivent Respimat 20-100 Mcg/Act) 1 Aer Aer, 1 PUFF INH BID, (Reported) Aspirin (Aspirin 81) 81 Mg Tab, 81 MG PO DAILY, (Reported) Atorvastatin Calcium (Lipitor) 20 Mg Tab, 80 MG PO DAILY, (Reported) Bupropion HCl (Wellbutrin Sr) 200 Mg Tab, PO BID, (Reported) Cetirizine HCl (Cetirizine HCl) 10 Mg Tab, PO DAILY, (Reported) Isosorbide Mononitrate (Isosorbide Mononitrate ER) 30 Mg Tab, 30 MG PO DAILY, (Reported) Mometasone Furoate (Asmanex Hfa) 100 Mcg/Act Aer, Unknown Dose INH BID, (Reported) Montelukast Sodium (Singulair) 10 Mg Tab, 10 MG PO QHS, (Reported) Nicotine (Nicoderm Cq) 21 Mg/24 Hr Dis, 21 MG TD DAILY, (Reported) Pantoprazole Sodium (Pantoprazole Sodium) 40 Mg Tab, PO DAILY, (Reported) Trazodone HCl (Trazodone HCl) 150 Mg Tab, PO QHS, (Reported) Scheduled PRN Acetaminophen/Hydrocodone ([place], [place] 5/325) 1 Tab Tab, 1 TAB PO Q6HP PRN for MODERATE PAIN (PS 5-7) Clopidogrel Bisulfate (Plavix) 75 Mg Tab, 75 MG PO DAILY PRN for antiplatelet Cyclobenzaprine HCl (Cyclobenzaprine HCl) 10 Mg Tab, 10 MG PO TID PRN for MUSCLE SPASMS Allergies Coded Allergies: Codeine (Verified Adverse Reaction, Mild, vomiting, 06/09/18) LUCY REGALADO PA-C Jul 01, 2018 09:17
[2018-07-01 09:18] VITALS: BP 131/72
[2018-07-01] MEDS: ISOSORBIDE MON. (IMDUR) 30 MG XR TAB PO SCH (09:18)
[2018-07-01] MEDS: NICOTINE 21MG/24HR 1 EA TRANSDERMAL TD SCH (09:18)
--- NOTE | 2018-08-07 08:56 | REPIR ---
DATE OF PROCEDURE: 06/19/2018 ATTENDING SURGEON: Jesse Mack MD ASSISTANTS: Brigid Diamond and Mari Kamara PREOPERATIVE DIAGNOSES: Right lower extremity claudication. Aortoiliac atherosclerotic arterial occlusive disease. 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 POSTOPERATIVE DIAGNOSES: Right lower extremity claudication. Aortoiliac atherosclerotic arterial occlusive disease. 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 PROCEDURE: Left common femoral arterial cannulation. Aortogram. Iliofemoral angiogram. Right external iliac artery endarterectomy. Right common femoral artery endarterectomy. Right superficial femoral artery endarterectomy. Right profunda femoris artery endarterectomy with patch angioplasty with XenoSure Biologic patch. Left common iliac artery angioplasty and stent with a 10 x 49 WALLSTENT postdilated with 8 x 4 balloon. Right common iliac artery angioplasty and stent with a 12 x 40 WALLSTENT postdilated with an 8 x 4 balloon. Right external artery angioplasty and stent with 10 x 49 WALLSTENT postdilated an 8 x 4 balloon. Right external iliac artery angioplasty and stent with 10 x 39 WALLSTENT postdilated with an 8 x 4 balloon. INDICATION: The patient is a 53-year-old female with severe atherosclerotic arterial occlusive disease and severe right lower extremity claudication and ischemia. The patient has severe disease in the common femoral, external iliac, common iliac arteries, bilaterally as well as the superficial femoral and profunda femoris artery. Risks, benefits and alternative treatment options were discussed with the patient. ANESTHESIA: Local monitored anesthesia care (MAC). ESTIMATED BLOOD LOSS: 1500 mL. HEPARIN: 6000 units followed by an additional 3000 units. PROTAMINE: 50 mg IV FLUIDS: 6300 mL of crystalloid, 2 units of packed red blood cells. SPECIMEN: Right external iliac artery and femoral plaque. FLUORO TIME: 13 minutes, 8 seconds. CONTRAST: 6 mL. COMPLICATIONS: None. DRAINS: None. IMPLANTS: XenoSure Biologic patch used to close the arteriotomy in the right external iliac, common femoral, superficial femoral, and profunda femoris arteries. PROCEDURE: Patient was taken to the operating room, placed supine on the operating room table and prepped and draped in a standard surgical fashion. An oblique incision was made in the inguinal region on the right side exposing the right common femoral, superficial femoral, profunda femoris arteries which was sharply dissected and encircled with vessel loops. The plaque was felt to be extending up under the inguinal ligament. The inguinal ligament was dissected free and retracted cephalad exposing the external iliac artery. A soft spot in the external iliac artery was found and after the patient received heparin this was clamped. An arteriotomy was made and an endarterectomy was performed with removal of plaque from the external iliac artery, common femoral artery, superficial femoral artery and eversion endarterectomy of the profunda femoris artery was performed with removal of plaque. A catheter was then placed in the aorta via a left common femoral arterial cannulation and aortogram and iliofemoral angiogram was performed. The left common iliac artery underwent angioplasty and stenting with 10 x 49 WALLSTENT. The right common iliac artery underwent angioplasty with 12 x 40 WALLSTENT. The right external iliac artery underwent angioplasty with a 10 x 49 and 10 x 39 WALLSTENT postdilated all with 8 x 4 balloon. A completion angiogram showed resolution of the stenoses with excellent flow through both common and external iliac arteries. The patch angioplasty of the arteriotomy was completed using XenoSure Biologic patch and #6-0 Prolene suture in running continuous fashion with good flow noted through the external iliac artery on the right into the common femoral and profunda femoris artery. The superficial femoral artery showed decreased backbleeding due to distal occlusive disease and there was a blunted signal in the right superficial femoral artery at the completion of the endarterectomy. Hemostasis was obtained after which the deep tissue was approximated using #2-0 Vicryl and skin closed using fer. Dressings were applied. The patient tolerated the procedure well. All instrument, sponge and needle counts were correct at the end of the case. There were no complications. Dr. Mack was present for directed the entire case. The patient was transferred to the recovery room awake, alert, extubated and in stable condition.
== END 2018-07-01 13:00 | disposition home or self-care (01) | DRG 169 ==
LOC: M OR 09:19 → M ICU 22:07 → M MS4PR 06-22 10:43 → M MSPAV 06-22 10:44
PROVIDERS: ADMIT Surgery Vascular Surgery; ATTEND Surgery Vascular Surgery
PROC: 04CH0ZZ Extirpation of Matter from Right External Iliac Artery, Open Approach (ICD-10-PCS; 2018-06-19)
PROC: 04CK0ZZ Extirpation of Matter from Right Femoral Artery, Open Approach (ICD-10-PCS; 2018-06-19)
PROC: 04UK0JZ Supplement Right Femoral Artery with Synthetic Substitute, Open Approach (ICD-10-PCS; 2018-06-19)
PROC: 04UH0JZ Supplement Right External Iliac Artery with Synthetic Substitute, Open Approach (ICD-10-PCS; 2018-06-19)
PROC: 30233N1 Transfusion of Nonautologous Red Blood Cells into Peripheral Vein, Percutaneous Approach (ICD-10-PCS; principal; 2018-06-19 11:30)
DX: I70.211 Atherosclerosis of native arteries of extremities with intermittent claudication, right leg (principal); I21.4 Non-ST elevation (NSTEMI) myocardial infarction; M62.82 Rhabdomyolysis; I77.1 Stricture of artery; D69.6 Thrombocytopenia, unspecified; J44.9 Chronic obstructive pulmonary disease, unspecified; E55.9 Vitamin D deficiency, unspecified; Z95.1 Presence of aortocoronary bypass graft; D62 Acute posthemorrhagic anemia; I25.10 Atherosclerotic heart disease of native coronary artery without angina pectoris; Z79.899 Other long term (current) drug therapy; Z88.5 Allergy status to narcotic agent; Z79.82 Long term (current) use of aspirin; I25.2 Old myocardial infarction; E78.5 Hyperlipidemia, unspecified; F32.9 Major depressive disorder, single episode, unspecified; F17.200 Nicotine dependence, unspecified, uncomplicated; K57.30 Diverticulosis of large intestine without perforation or abscess without bleeding; B18.2 Chronic viral hepatitis C; I10 Essential (primary) hypertension; I95.9 Hypotension, unspecified; K66.1 Hemoperitoneum

== ENCOUNTER 2018-07-04 13:06 | Emergency (ER) | payer OTHER, MEDICAID | END 2018-07-04 15:20 | disposition home or self-care (01) | LOC: M ED 13:06 | DX: M25.561 Pain in right knee (principal); I25.10 Atherosclerotic heart disease of native coronary artery without angina pectoris; Z86.718 Personal history of other venous thrombosis and embolism; Z79.899 Other long term (current) drug therapy; Z79.82 Long term (current) use of aspirin; Z88.5 Allergy status to narcotic agent | CPT/HCPCS: 93971 ==

== ENCOUNTER 2019-08-25 08:28 | Outpatient (CLI) | payer MEDICAID, OTHER ==
[~2019-08-25] VITALS: Ht 157.5 cm; Wt 60.7 kg
[2019-08-25] VITALS (9 sets, daily range): BP systolic 111–134; BP diastolic 58–75
[~2019-08-25 08:28] MED LIST changes: -/ATOR40TA OR; +ASPI-255 PO; -ASPI1TAB PO; -ASPI325T25 PO; +ASPI81TA26 PO; +ELIQ2.5T PO; +HYDR-3715 PO; +HYDR1SOL22 PO; +LIPI1TAB2 OR; +PLAV1TAB2 PO; +PROAAER10 INH; +SERT-141 PO; +[UNRECOGNIZED DRUG - CODE] PO
[2019-08-25] MEDS ORDERED: ACETAMINOPHEN 325 MG TAB PO ONE (09:00)
[2019-08-25] MEDS ORDERED: diphenhydrAMINE 25 MG CAP PO ONE (09:00)
[2019-08-25] MEDS ORDERED: diphenhydrAMINE INJ 50MG/ML VIAL (J1200) IV ONE (11:00)
[2019-08-25] MEDS ORDERED: ACETAMINOPHEN SUSP DYE FREE 160 MG/5 ML UDC GT ONE (11:00)
== END 2019-08-25 15:15 | disposition home or self-care (01) ==
LOC: M INFU 08:28
PROVIDERS: ATTEND Internal Medicine Hematology
DX: D64.9 Anemia, unspecified (principal); C34.90 Malignant neoplasm of unspecified part of unspecified bronchus or lung
CPT/HCPCS: 36430; 86850; 86900; 86901; 86920; J1200; P9016

== ENCOUNTER → 2019-09-10 | Outpatient (CLI) | payer OTHER ==
[~2019-09-10] MED LIST changes: +GASTROGRAFIN SOLUTION 30ML (Q9963) As Ordered ONE; +ISOVUE-370 76% 100ML VIAL (Q9967) As Ordered ONE
--- NOTE | 2019-09-11 05:26 | REP ---
Clinical: Lung cancer. Restaging. Technique: Axial contrast enhanced images from the thoracic inlet to the upper abdomen with coronal and sagittal re-formations using 100 ml Isovue 370 intravenous contrast material. Comparison: None available. Findings: Large right pleural effusion along with areas of consolidation involving the right upper lobe, right middle lobe, and right lower lobe. Smaller areas of consolidation are also noted along the medial aspect of the left hemithorax. There is ill-defined soft tissue within the mediastinum suggesting malignancy/adenopathy. Soft tissue are identified extending into the region of the right thoracic inlet which may also represent adenopathy left subclavian vein and brachiocephalic vein stents are identified. Atherosclerotic changes to the thoracic aorta and coronary arteries noted without aortic aneurysm or cardiomegaly. No obvious pericardial effusion. The surrounding osseous structures appear grossly intact without obvious focal abnormality. Evidence for prior sternotomy noted. Collateral vessels along the right chest wall are identified. Impression: Effusion, areas of consolidation/mass, and presumed mediastinal adenopathy as well as subtle soft tissue/inflammatory changes extending into the right thoracic inlet as described above and consistent with the given history of lung cancer. No prior examinations are available for comparison. Electronically Signed by Genaro Metzger MD 09/11/2019 05:17 A
--- NOTE | 2019-09-11 08:13 | REP ---
CT of the abdomen and pelvis with IV and oral contrast for restaging lung carcinoma: The studies performed. Contiguous with the chest CT this same date. The visualized lung eric are as described on the chest CT there is a large right pleural effusion and right lung infiltrates. There is left paramediastinal atelectasis. There is an endovascular stent in the subclavian and innominate veins, The hepatic parenchyma is homogeneous. The gallbladder, pancreas and spleen are normal size and unremarkable. There is a PEG tube . The track is intact. The adrenals are unremarkable. Kidneys are unremarkable. The abdominal aorta is unremarkable except for calcified atheroma. There is no periaortic adenopathy/mass. There is no bowel distension. The mesentery is unremarkable. Pelvis: There is a hysterectomy. The bladder is unremarkable. There is no adenopathy or ascites. There are no lytic, blastic or destructive skeletal changes. There is an aorto femoral graft on the right. On the left. The graft is aorto-iliac. There are extensive subcutaneous venous collaterals bilaterally. Impression: There is no adenopathy, mass or ascites. There is a PEG tube. There is no adrenal mass. There is an aorto femoral graft of the right / aortoiliac on the left. There are extensive subcutaneous venous collaterals. Electronically Signed by Tom Melgar MD 09/11/2019 08:04 A
== END ==
LOC: M RAD 14:49
PROVIDERS: ATTEND Internal Medicine Hematology
DX: C34.91 Malignant neoplasm of unspecified part of right bronchus or lung (principal)
CPT/HCPCS: 71260; 74177; Q9963; Q9967

== ENCOUNTER → 2019-09-29 | Outpatient (REF) | payer OTHER ==
[~2019-09-29] MED LIST changes: +FLON1SPR NARES; -GASTROGRAFIN SOLUTION 30ML (Q9963) As Ordered ONE; -ISOVUE-370 76% 100ML VIAL (Q9967) As Ordered ONE
[2019-09-29 14:48] LABS: BASO % 0.1 % (0.0-1.0); HEMATOCRIT 35.7 % (36.0-47.0); HEMOGLOBIN 10.1 g/dl (12.0-15.5); LYMPH % 1.3 % (24.0-44.0); MEAN CORPUSCULAR HEMOGLOBIN 26.2 pg (27.0-33.0); MEAN CORPUSCULAR HGB CONC 28.3 g/dl (32.0-36.5); MEAN CORPUSCULAR VOLUME 92.7 fl (80.0-96.0); MONO # 0.5 10^3/uL (0.0-0.8); MONO % 4.3 % (0.0-5.0); NEUTROPHILS # 11.2 10^3/uL (1.5-8.5); NEUTROPHILS % 93.7 % (36.0-66.0); PLATELET COUNT, AUTOMATED 385 10^3/uL (150-450); RED BLOOD COUNT 3.85 10^6/uL (4.00-5.40); WHITE BLOOD COUNT 11.9 10^3/uL (4.0-10.0)
[2019-09-29 14:58] LABS: INR 1.19; PROTHROMBIN TIME 14.8 SECONDS (11.8-14.0)
[2019-09-29 14:59] LABS: PARTIAL THROMBOPLASTIN TIME 39.5 SECONDS (25.0-38.4)
[2019-09-29 15:03] LABS: ALBUMIN 2.1 GM/DL (3.2-5.2); ALT/SGPT 70 U/L (12-78); BILIRUBIN,TOTAL 0.3 MG/DL (0.2-1.0); BLOOD UREA NITROGEN 21 MG/DL (7-18); CALCIUM LEVEL 9.4 MG/DL (8.5-10.1); CARBON DIOXIDE LEVEL 35 MEQ/L (21-32); CHLORIDE LEVEL 99 MEQ/L (98-107); CREATININE FOR GFR 0.36 MG/DL (0.55-1.30); FREE T4 1.38 NG/DL (0.76-1.46); GLOMERULAR FILTRATION RATE > 60.0 (>51); GLUCOSE, FASTING 122 MG/DL (70-100); IRON (FE) 20 UG/DL (50-170); PERCENT SATURATION 11.2 % (13.2-45.0); POTASSIUM SERUM 4.4 MEQ/L (3.5-5.1); SODIUM LEVEL 139 MEQ/L (136-145); TOTAL IRON BINDING CAPACITY 179 UG/DL (250-450); TOTAL PROTEIN 7.3 GM/DL (6.4-8.2); TROPONIN I 0.02 NG/ML (< 0.10)
[2019-09-29 15:15] LABS: VITAMIN B12 LEVEL 748 PG/ML (247-911)
[2019-09-29 15:28] LABS: LYMPH # 0.2 10^3/uL (1.5-5.0)
== END ==
LOC: M SFHCPLAZ 12:55
PROVIDERS: ATTEND Family Medicine
DX: J44.9 Chronic obstructive pulmonary disease, unspecified (principal); D63.8 Anemia in other chronic diseases classified elsewhere; I25.810 Atherosclerosis of coronary artery bypass graft(s) without angina pectoris

== ENCOUNTER 2019-10-01 08:29 | Day surgery (SDC) | payer OTHER ==
[~2019-10-01] VITALS: Ht 160 cm; Wt 57.7 kg
[~2019-10-01 08:29] MED LIST changes: +NS 1,000 ML IV ONE
--- NOTE | 2019-10-01 10:02 | ROOR ---
Patient Name: Ced Bacon Procedure Date: 10/01/2019 9:41 AM Date of : 1965 Age: 54 Room: [facility] Gender: Female Note Status: Finalized Procedure: Upper GI endoscopy Indications: Dysphagia Providers: Lambert Arana Jr, MD Referring MD: Jazlyn NICK Requesting Provider: Medicines: Propofol per Anesthesia Complications: No immediate complications. Procedure: Pre-Anesthesia Assessment: - Prior to the procedure, a History and Physical was performed, and patient medications and allergies were reviewed. The patient is competent. The risks and benefits of the procedure and the sedation options and risks were discussed with the patient. All questions were answered and informed consent was obtained. Patient identification and proposed procedure were verified by the physician and the nurse in the pre-procedure area and in the procedure room. Mental Status Examination: alert and oriented. Airway Examination: normal oropharyngeal airway and neck mobility. Respiratory Examination: clear to auscultation. CV Examination: normal. ASA Grade Assessment: III - A patient with severe systemic disease. After reviewing the risks and benefits, the patient was deemed in satisfactory condition to undergo the procedure. The anesthesia plan was to use moderate sedation / analgesia (conscious sedation). Immediately prior to administration of medications, the patient was re-assessed for adequacy to receive sedatives. The heart rate, respiratory rate, oxygen saturations, blood pressure, adequacy of pulmonary ventilation, and response to care were monitored throughout the procedure. The physical status of the patient was re-assessed after the procedure. The Endoscope was introduced through the mouth, and advanced to the upper third of esophagus. The upper GI endoscopy was technically difficult and complex due to abnormal anatomy. The patient tolerated the procedure well. Findings: One benign-appearing, intrinsic severe stenosis was found 15 cm from the incisors. This stenosis measured 4 mm (inner diameter) x as far as the scope could see ,? 10-15 cm. The stenosis was not traversed. Impression: - Benign-appearing esophageal stenosis. - No specimens collected. Recommendation: - Discharge patient to home (ambulatory). - Return to my office at appointment to be scheduled. Lambert Arana MD Lambert Arana Jr, MD 10/01/2019 10:01:49 AM Electronically signed by Lambert Arana Jr, MD Number of Addenda: 0 Note Initiated On: 10/01/2019 9:41 AM Estimated Blood Loss: Estimated blood loss: none.
[2019-10-01] MEDS ORDERED: propofoL 500 MG/50 ML VIAL As Ordered ONE (10:09)
[2019-10-01] MEDS ORDERED: LIDOCAINE 2% INJ 100 MG/5 ML SDV (FOR ANES.) As Ordered ONE (10:09)
[2019-10-01 10:34] VITALS: BP 127/67
== END 2019-10-01 10:37 | disposition home or self-care (01) ==
LOC: M OPP 08:29
PROVIDERS: ATTEND Surgery
DX: K22.2 Esophageal obstruction (principal); R13.10 Dysphagia, unspecified; J44.9 Chronic obstructive pulmonary disease, unspecified; I50.30 Unspecified diastolic (congestive) heart failure; I25.2 Old myocardial infarction; Z79.891 Long term (current) use of opiate analgesic; Z79.899 Other long term (current) drug therapy; Z88.5 Allergy status to narcotic agent; Z95.5 Presence of coronary angioplasty implant and graft